=== PATIENT | male | born 1975 | race Caucasian/White ===

== ENCOUNTER 2019-01-29 19:54 | Inpatient (IN) | payer BC ==
[2019-01-29] MEDS ORDERED: SODIUM CHLORIDE 0.9% 1,000 ML IV STA (21:45)
[2019-01-29] MEDS ORDERED: KETOROLAC 30 MG/ML 1 ML VIAL IVP STA (21:46)
--- NOTE | 2019-01-29 21:52 | ED ---
URI HPI - General Chief Complaint: Upper Respiratory Infection Stated Complaint: Flu Time Seen by Provider: 01/29/19 21:28 Source: patient Mode of arrival: ambulatory Limitations: no limitations - History of Present Illness Initial Comments: 43-year-old male patient presents to the emergency department today for evaluation of shortness of breath, left-sided chest pain, nausea, and abdominal bloating. Patient states that approximately a week and a half ago he started developing flulike symptoms with cough, nasal congestion, sore throat, and fever. Patient states that most symptoms have resolved however he continues to have a productive cough with some shortness of breath. States that today he also developed some cold sweats was having left-sided rib and chest pain. She states he then had some dry heaves and he has been experiencing abdominal bloating and swelling throughout the day. States he had a near syncopal episode prior to coming in and has been very fatigued. Patient denies any significant past medical history. Denies any history of smoking. States that his heart rate has been more elevated than usual per his fitness watch. Patient denies any recent rash, constipation, back pain, numbness, tingling, dizziness, weakness, hematuria, dysuria, urinary urgency, urinary frequency, headache, visual changes, or any other complaints. - Related Data Home Medications Medication Instructions Recorded Confirmed Azithromycin [Zithromax Z-pack] See Taper PO DIRECTED 01/29/19 01/29/19 Allergies Allergy/AdvReac Type Severity Reaction Status Date / Time No Known Allergies Allergy Verified 01/29/19 22:35 Review of Systems ROS Statement: Those systems with pertinent positive or pertinent negative responses have been documented in the HPI. ROS Other: All systems not noted in ROS Statement are negative. Past Medical History Past Medical History: No Reported History History of Any Multi-Drug Resistant Organisms: None Reported Past Surgical History: Cholecystectomy, Orthopedic Surgery Past Psychological History: No Psychological Hx Reported Smoking Status: Never smoker Past Alcohol Use History: Rare Past Drug Use History: None Reported General Exam Limitations: no limitations General appearance: alert, in no apparent distress, other (Physical well- developed, well-nourished adult male patient in no acute distress. Vital signs upon presentation are temperature 99.7F, pulse 100, respirations 22, blood pressure 134/86, pulse ox 95% on room air.) Eye exam: Present: normal appearance, PERRL, EOMI. Absent: scleral icterus, conjunctival injection, periorbital swelling ENT exam: Present: normal exam, mucous membranes moist, TM's normal bilaterally. Absent: normal oropharynx (Pharyngeal erythema) Neck exam: Present: normal inspection. Absent: tenderness, meningismus, lymphadenopathy Respiratory exam: Present: normal lung sounds bilaterally, chest wall tenderness (Left anterior rib pain). Absent: respiratory distress, wheezes, rales, rhonchi, stridor Cardiovascular Exam: Present: normal rhythm, tachycardia, normal heart sounds. Absent: systolic murmur, diastolic murmur, rubs, gallop, clicks GI/Abdominal exam: Present: soft, distended, normal bowel sounds. Absent: tenderness, guarding, rebound, rigid Neurological exam: Present: alert, oriented X3, CN II-XII intact Psychiatric exam: Present: normal affect, normal mood Skin exam: Present: warm, dry, intact, normal color. Absent: rash Course Vital Signs 01/29/19 01/30/19 20:58 00:04 Temperature 99.7 F H 98.0 F Pulse Rate 100 85 Respiratory 22 18 Rate Blood Pressure 134/86 144/93 O2 Sat by Pulse 95 95 Oximetry Medical Decision Making - Medical Decision Making 43-year-old male patient presents to the emergency department today for evaluation of sided chest pain, shortness of breath, fatigue, and near-syncope. Physical examination did reveal clear equal lung sounds. Patient did recently recovered from a viral upper respiratory infection. Labs reviewed and did reveal elevated white blood cell count of 15.0, d-dimer 3.97, and BUN 23. Chest x-ray did reveal cardiomegaly and bilateral atelectasis. EKG showed normal sinus rhythm with a ventricular rate of 94. Patient was placed on telemetry to monitor for dysrhythmias, I did interpret strip as normal sinus rhythm with rates in the 70s. Given elevated d-dimer we did obtain CT angiography of the chest to rule out pulmonary embolism. CT results did reveal no evidence for pulmonary embolism however did reveal large pericardial effusion and bilateral pleural effusions. I did discuss findings and results with the patient. He'll be admitted to the hospital for further evaluation by cardiology. He will be monitored on telemetry. Patient is agreeable with this plan. - Lab Data Result diagrams: 01/29/19 22:02 02/28/19 22:02 Lab Results 01/29/19 01/29/19 01/29/19 Range/Units 22:02 22:02 22:02 WBC 15.0 H (3.8-10.6) k/uL RBC 5.33 (4.30-5.90) m/uL Hgb 16.0 (13.0-17.5) gm/dL Hct 48.8 (39.0-53.0) % MCV 91.6 (80.0-100.0) fL MCH 30.0 (25.0-35.0) pg MCHC 32.8 (31.0-37.0) g/dL RDW 12.6 (11.5-15.5) % Plt Count 448 (150-450) k/uL Neutrophils % 82 % Lymphocytes % 9 % Monocytes % 5 % Eosinophils % 2 % Basophils % 0 % Neutrophils # 12.3 H (1.3-7.7) k/uL Lymphocytes # 1.4 (1.0-4.8) k/uL Monocytes # 0.8 (0-1.0) k/uL Eosinophils # 0.4 (0-0.7) k/uL Basophils # 0.0 (0-0.2) k/uL PT 11.8 (9.0-12.0) sec INR 1.1 (<1.2) APTT 22.1 (22.0-30.0) sec D-Dimer 3.97 H (<0.60) mg/L FEU Sodium 139 (137-145) mmol/L Potassium 4.8 (3.5-5.1) mmol/L Chloride 101 (98-107) mmol/L Carbon Dioxide 28 (22-30) mmol/L Anion Gap 10 mmol/L BUN 23 H (9-20) mg/dL Creatinine 0.87 (0.66-1.25) mg/dL Est GFR (CKD-EPI)AfAm >90 (>60 ml/min/1.73 sqM) Est GFR (CKD-EPI)NonAf >90 (>60 ml/min/1.73 sqM) Glucose 129 H (74-99) mg/dL Calcium 9.1 (8.4-10.2) mg/dL Total Bilirubin 1.1 (0.2-1.3) mg/dL AST 27 (17-59) U/L ALT 57 (21-72) U/L Alkaline Phosphatase 85 (38-126) U/L Troponin I (0.000-0.034) ng/mL Total Protein 6.9 (6.3-8.2) g/dL Albumin 3.9 (3.5-5.0) g/dL Amylase <30 L (30-110) U/L Lipase 88 (23-300) U/L 01/29/19 Range/Units 22:02 WBC (3.8-10.6) k/uL RBC (4.30-5.90) m/uL Hgb (13.0-17.5) gm/dL Hct (39.0-53.0) % MCV (80.0-100.0) fL MCH (25.0-35.0) pg MCHC (31.0-37.0) g/dL RDW (11.5-15.5) % Plt Count (150-450) k/uL Neutrophils % % Lymphocytes % % Monocytes % % Eosinophils % % Basophils % % Neutrophils # (1.3-7.7) k/uL Lymphocytes # (1.0-4.8) k/uL Monocytes # (0-1.0) k/uL Eosinophils # (0-0.7) k/uL Basophils # (0-0.2) k/uL PT (9.0-12.0) sec INR (<1.2) APTT (22.0-30.0) sec D-Dimer (<0.60) mg/L FEU Sodium (137-145) mmol/L Potassium (3.5-5.1) mmol/L Chloride (98-107) mmol/L Carbon Dioxide (22-30) mmol/L Anion Gap mmol/L BUN (9-20) mg/dL Creatinine (0.66-1.25) mg/dL Est GFR (CKD-EPI)AfAm (>60 ml/min/1.73 sqM) Est GFR (CKD-EPI)NonAf (>60 ml/min/1.73 sqM) Glucose (74-99) mg/dL Calcium (8.4-10.2) mg/dL Total Bilirubin (0.2-1.3) mg/dL AST (17-59) U/L ALT (21-72) U/L Alkaline Phosphatase (38-126) U/L Troponin I <0.012 (0.000-0.034) ng/mL Total Protein (6.3-8.2) g/dL Albumin (3.5-5.0) g/dL Amylase (30-110) U/L Lipase (23-300) U/L - EKG Data EKG Comments: EKG interpreted by fl at 2211 shows normal sinus rhythm with a ventricular rate of 94, WA interval 124, QRS duration 82, QT 346, QTc 432. No evidence of ST elevation or depression. - Radiology Data Radiology results: report reviewed, image reviewed Two-view x-ray of the chest is obtained. Report was reviewed in its entirety. Impression by Dr. Sanders shows cardiomegaly. Mild interstitial thickening which could be related to edema. Mild opacities and left pectoral present atelectasis or early infiltrate. Blunting of the costophrenic sulcus suggesting small effusions. CT angiography of the chest is obtained. Report was reviewed in its entirety. Impression by Dr. Sanders shows large pericardial effusion. Bilateral pleural effusions with adjacent airspace disease favoring compressive atelectasis. At least mild ascites. Disposition Clinical Impression: Pericardial effusion, Bilateral pleural effusion, Ascites Disposition: ADMITTED IP TO THIS [facility] Condition: Serious Referrals: Shin Salter DO [Primary Care Provider] - 1-2 days Decision to Admit Reason: Admit from EC Decision Date: 01/30/19 Decision Time: 00:12
[2019-01-29 22:14] LABS: Basophils % (A) 0 %; Eosinophils # (A) 0.4 k/uL (0-0.7); Eosinophils % (A) 2 %; HCT 48.8 % (39.0-53.0); Lymphocytes # (A) 1.4 k/uL (1.0-4.8); Lymphocytes % (A) 9 %; MCHC 32.8 g/dL (31.0-37.0); MCV 91.6 fL (80.0-100.0); Mean Platelet Volume 7.5; Monocytes # (A) 0.8 k/uL (0-1.0); Monocytes % (A) 5 %; Neutrophils # (A) 12.3 k/uL (1.3-7.7); Neutrophils % (A) 82 %; Platelet Count 448 k/uL (150-450); RBC 5.33 m/uL (4.30-5.90); RDW 12.6 % (11.5-15.5)
[2019-01-29 22:23] LABS: ALT 57 U/L (21-72); AST 27 U/L (17-59); Albumin 3.9 g/dL (3.5-5.0); Alkaline Phosphatase 85 U/L (38-126); Anion Gap 10 mmol/L; Blood Urea Nitrogen 23 mg/dL (9-20); Calcium 9.1 mg/dL (8.4-10.2); Carbon Dioxide 28 mmol/L (22-30); Chloride 101 mmol/L (98-107); Glucose 129 mg/dL (74-99); Lipase 88 U/L (23-300); Potassium 4.8 mmol/L (3.5-5.1); Sodium 139 mmol/L (137-145); Total Bilirubin 1.1 mg/dL (0.2-1.3); Total Protein 6.9 g/dL (6.3-8.2)
[2019-01-29 22:31] LABS: Amylase <30 U/L (30-110)
[2019-01-29 22:35] LABS: INR 1.1 (<1.2); Partial Thromboplastin Time 22.1 sec (22.0-30.0); Prothrombin Time 11.8 sec (9.0-12.0)
[2019-01-29 22:45] LABS: D-Dimer 3.97 mg/L FEU (<0.60)
--- NOTE | 2019-01-29 22:55 | XR ---
EXAM: XR Chest, 1 View CLINICAL HISTORY: ITS.REASON XR Reason: difficulty breathing TECHNIQUE: Frontal view of the chest. COMPARISON: No relevant prior studies available. FINDINGS: Lungs: Mild interstitial thickening. Airspace opacities in the left base could represent atelectasis but nonspecific. Pleural space: Mild blunted appearance to the costophrenic sulci. No pneumothorax. Heart: Cardiomegaly. Mediastinum: Unremarkable. Bones/joints: Unremarkable. IMPRESSION: 1. Cardiomegaly. 2. Mild interstitial thickening which could be related to edema. Mild opacities in the left base likely represent atelectasis or early infiltrate. 3. Blunting of the costophrenic sulci suggesting small effusions.
--- NOTE | 2019-01-29 23:49 | CT ---
EXAM: CT Angiography Chest With Intravenous Contrast CLINICAL HISTORY: ITS.REASON CT Reason: Pain TECHNIQUE: Axial computed tomographic angiography images of the chest with intravenous contrast using pulmonary embolism protocol. CTDI is 15.5 mGy and DLP is 580.5 mGy-cm. This CT exam was performed using one or more of the following dose reduction techniques: automated exposure control, adjustment of the mA and/or kV according to patient size, and/or use of iterative reconstruction technique. MIP reconstructed images were created and reviewed. Coronal and sagittal reformatted images were created and reviewed. COMPARISON: Chest radiograph 01/29/19 FINDINGS: Pulmonary arteries: No visualized pulmonary arterial embolus. Aorta: No evidence for aortic dissection. Lungs: Dependent airspace disease favoring compressive atelectasis. Subsegmental atelectasis is also noted within the bilateral lungs. No mass. Pleural space: Bilateral small-moderate pleural effusions. No pneumothorax. Heart: Large pericardial effusion, approximate thickness 3.2 cm at the lateral aspect. Density is higher than simple fluid which could indicate complex or hemorrhagic component. Bones/joints: No acute fracture. No dislocation. Soft tissues: Nonacute.. Lymph nodes: Unremarkable. No enlarged lymph nodes. Intraperitoneal space: Perihepatic fluid/ascites. IMPRESSION: 1. Large pericardial effusion. 2. Bilateral pleural effusions with adjacent airspace disease favoring compressive atelectasis. 3. At least mild ascites. <MYCVCSECTION> Critical Value Communications 01/29/19 23:45 Call Doctor Regarding Pericardial Effusion of more than 1cm, called BIANCA Shaw on 01/29 23:44 (-05:00)
[2019-01-30] MEDS ORDERED: NALOXONE 0.4 MG/ML 1 ML VIAL IV PRN (00:13)
[2019-01-30] MEDS ORDERED: MORPHINE SULFATE 4 MG/ML SYRINGE IV PRN (00:13)
[2019-01-30] MEDS ORDERED: ONDANSETRON 4 MG/2 ML VIAL IVP PRN (00:13)
[2019-01-30 01:27] VITALS: BMI 41.2
[2019-01-30 01:39] LABS: Appearance,Urine Clear (Clear); Bilirubin,Urine Negative (Negative); Blood,Urine Negative (Negative); Color,Urine Yellow; Glucose,Urine (UA) Negative (Negative); Ketones,Urine Negative (Negative); Leukocyte Esterase,Urine Negative (Negative); Mucus,Urine Many /hpf; Nitrite,Urine Negative (Negative); Protein,Urine 2+ (Negative); RBC,Urine 1 /hpf (0-5); Specific Gravity,Urine 1.042 (1.001-1.035); WBC,Urine 1 /hpf (0-5)
[2019-01-30] MEDS ORDERED: KETOROLAC 30 MG/ML 1 ML VIAL IVP PRN (10:47)
[2019-01-30] MEDS ORDERED: IPRATROPIUM-ALBUTEROL 3 ML NEB INHALATION PRN (10:52)
[2019-01-30] MEDS ORDERED: methylPREDNISolone SOD SUCCI 40 MG/ML 1 ML VIAL IV SCH ×2 (11:00→21:00)
--- NOTE | 2019-01-30 11:29 | CONS ---
CONSULTATION Mr. Zavaleta is a 43-year-old gentleman who is seen for cardiac evaluations. Patient's medical records reviewed. This patient came with symptoms of shortness of breath and some left-sided chest pain and abdominal bloating. Patient gives a history that he had about a week and half ago, he started developing some flu-like symptoms with cough, nasal congestion, sore throat and fever. Most of those symptoms are resolved but he continued to have some productive cough and shortness of breath. Patient was seen by primary care doctor and he was prescribed Zithromax. As the patient continued to have some palpitations and the rapid heartbeat and shortness of breath, he came to the emergency room. He denies any orthopnea or PND. Patient denies any history of diabetes, hypertension, or any previous cardiac problems. Patient's home medications includes Zithromax with a tapering dose. PAST MEDICAL HISTORY: Includes history of cholecystectomy, orthopedic surgery. SOCIAL HISTORY: The patient never smoker. PHYSICAL EXAMINATION: At present reveals a 43-year-old obesely-built gentleman who does not appear to be in any acute distress. Patient had a low-grade temperature of 99 in the emergency room and blood pressure was 134/86 mmHg. Heart rate was 95 per minute. Patient's blood pressure now is 132/84 mmHg, heart rate is 100. HEENT examination is negative. Neck is supple. Jugular venous pressure is difficult to assess, both the carotid pulses are felt. There is no bruit. Chest is symmetrical. Heart, the PMI is not felt. First and second heart sounds are normal. No rub is heard. Lung examination revealed bilateral basal crackles with some scattered wheezes, heard on the left side. Abdomen is negative. Extremities, peripheral pulsations are 2+. [place] [id number]. D-dimer was 3.97. Patient's electrolytes are normal. Patient had a CT scan of the chest in the emergency room, which did not show any evidence of pulmonary embolism, but there was evidence of bilateral small to moderate pleural effusion and large pericardial effusion. There is a question of mild ascites. The pericardial fluid is the density of pericardial fluid were higher than simple fluid, which is suggestive of probably exudate or questionable hemorrhagic component. IMPRESSION: The patient's echocardiogram was done which again shows moderate to large pericardial effusion. There is evidence of right atrial systolic collapse. There is no significant right ventricular diastolic collapse. IVC is dilated and does not collapse, suggestive of elevated right atrial pressure. FINAL IMPRESSION: This patient has evidence of moderate to large pericardial effusion, bilateral pleural effusion. There is no definite evidence of tamponade at present. Patient's blood pressure is stable. His heart rate is 100; however, IVC is dilated and does not collapse. Patient most likely has a viral pleural pericarditis. This was discussed with the patient. Discussed with . In view of the large pericardial effusion, we will start the patient on Solu-Medrol and see whether we can resolve the pericardial effusion. Patient will be also started on Motrin and colchicine. We have obtained a Sed Rate and C-reactive protein and we will also obtain viral studies. MMODL / IJN: [id number] /
--- NOTE | 2019-01-30 11:47 | P.HPIM ---
History of Present Illness 43-year-old pleasant gentleman came in the emergency department with compensative shortness of breath left-sided pleuritic chest pain upper respiratory tract symptoms which started about a week ago followed by shortness of breath palpitations. Patient doesn't have any fever as of now. Patient was treated with Z-Cy. Patient had a CAT scan of the chest which showed bilateral pleural effusions along with the moderate large pedicle effusion patient underwent echocardiogram which confirmed a pericardial effusion. Discussed with cardiology at bedside. They're recommending medical therapy with the aggressive steroid therapy, nonsteroidal anti-inflammatory as well as colchicine and close monitoring for the next day or so. Review of Systems REVIEW OF SYSTEMS: CONSTITUTIONAL: No fever, no malaise, no fatigue. HEENT: No recent visual problems or hearing problems. Denied any sore throat. CARDIOVASCULAR: No orthopnea, PND, no syncope. PULMONARY: no cough, no hemoptysis. GASTROINTESTINAL: No diarrhea, no nausea, no vomiting, no abdominal pain. NEUROLOGICAL: No headaches, no weakness, no numbness. HEMATOLOGICAL: Denies any bleeding or petechiae. GENITOURINARY: Denies any burning micturition, frequency, or urgency. MUSCULOSKELETAL/RHEUMATOLOGICAL: Denies any joint pain, swelling, or any muscle pain. ENDOCRINE: Denies any polyuria or polydipsia. The rest of the 14-point review of systems is negative. Past Medical History Past Medical History: No Reported History History of Any Multi-Drug Resistant Organisms: None Reported Past Surgical History: Cholecystectomy, Orthopedic Surgery Additional Past Surgical History / Comment(s): Left shoulder surgery 08/2008 Past Anesthesia/Blood Transfusion Reactions: No Reported Reaction Past Psychological History: No Psychological Hx Reported Smoking Status: Never smoker Past Alcohol Use History: Rare Past Drug Use History: None Reported Medications and Allergies Home Medications Medication Instructions Recorded Confirmed Type Azithromycin [Zithromax Z-pack] See Taper PO DIRECTED 01/29/19 01/29/19 History Allergies Allergy/AdvReac Type Severity Reaction Status Date / Time No Known Allergies Allergy Verified 01/29/19 22:35 Physical Exam Vitals: Vital Signs Temp Pulse Pulse Resp BP BP Pulse Ox 01/30/19 08:44 98 01/30/19 08:00 99 F 102 H 18 132/84 96 01/30/19 03:57 99.5 F 93 16 122/86 99 01/30/19 01:33 98.2 F 62 16 120/93 98 01/30/19 00:04 98.0 F 85 18 144/93 95 01/29/19 20:58 99.7 F H 100 22 134/86 95 Intake and Output 01/29/19 01/30/19 01/30/19 22:59 06:59 14:59 Intake Total 240 Balance 240 Intake: Oral 240 Other: # Voids 1 Weight 127.006 kg 130.4 kg PHYSICAL EXAMINATION: GENERAL: The patient is alert and oriented x3, not in any acute distress. Obese HEENT: Pupils are round and equally reacting to light. EOMI. No scleral icterus. No conjunctival pallor. Normocephalic, atraumatic. No pharyngeal erythema. No thyromegaly. CARDIOVASCULAR: S1 and S2 present. No murmurs, rubs, or gallops. PULMONARY: Chest is clear to auscultation, no wheezing or crackles. ABDOMEN: Soft, nontender, nondistended, normoactive bowel sounds. No palpable organomegaly. MUSCULOSKELETAL: No joint swelling or deformity. EXTREMITIES: No cyanosis, clubbing, or pedal edema. NEUROLOGICAL: Gross neurological examination did not reveal any focal deficits. SKIN: No rashes. Results CBC & Chem 7: 01/29/19 22:02 01/29/19 22:02 Labs: Abnormal Lab Results - Last 24 Hours (Table) 01/29/19 01/29/19 01/29/19 Range/Units 22:02 22:02 22:02 WBC 15.0 H (3.8-10.6) k/uL Neutrophils # 12.3 H (1.3-7.7) k/uL D-Dimer 3.97 H (<0.60) mg/L FEU BUN 23 H (9-20) mg/dL Glucose 129 H (74-99) mg/dL Amylase <30 L (30-110) U/L Ur Specific [place] (1.001-1.035) Urine Protein (Negative) Urine Mucus (None) /hpf 01/30/19 Range/Units 01:25 WBC (3.8-10.6) k/uL Neutrophils # (1.3-7.7) k/uL D-Dimer (<0.60) mg/L FEU BUN (9-20) mg/dL Glucose (74-99) mg/dL Amylase (30-110) U/L Ur Specific [place] 1.042 H (1.001-1.035) Urine Protein 2+ H (Negative) Urine Mucus Many H (None) /hpf Thrombosis Risk Factor Assmnt - Choose All That Apply Any of the Below Risk Factors Present?: Yes Each Factor Represents 1 point: Age 41-60 years, Obesity (BMI >25) Other Risk Factors: No Other congenital or acquired thrombophilia - If yes, enter type in comment: No Thrombosis Risk Factor Assessment Total Risk Factor Score: 2 Thrombosis Risk Factor Assessment Level: Low Risk Assessment and Plan Plan: -Shortness of breath or pleuritic chest pain: Secondary to pleuropericarditis from her recent viral infection patient was started on steroids and inflammatory medications and colchicine patient will be closely monitored. Patient does not have any elevated JVD does not appear to have cardiac tamponade at this time. Patient was started on GI prophylaxis as well -Recent upper respiratory infection patient will not require any antibiotics patient the appears to have viral infection -Leukocytosis reactive in nature -Tachycardia secondary to pleuropericarditis no evidence of pneumonia Patient will need pharmacologic GI prophylaxis early ablation will not require any pharmacologic DVT prophylaxis
[2019-01-30] MEDS: PANTOPRAZOLE 40 MG TABLET PO SCH (12:46)
[2019-01-30] MEDS: IBUPROFEN 600 MG TAB PO SCH ×3 (12:46→21:09)
[2019-01-30] MEDS: COLCHICINE 0.6 MG EACH PO SCH ×2 (12:47→21:09)
[2019-01-30] MEDS: IPRATROPIUM-ALBUTEROL 3 ML NEB INHALATION SCH ×3 (13:33→19:37)
--- NOTE | 2019-01-30 18:52 | ECHOF ---
Referral Reason:pericardial effusioin MEASUREMENTS -------- HEIGHT: 180.3 cm WEIGHT: 130.6 kg BP: IVSd: 1.2 cm (0.6 - 1.1) LVIDd: 3.5 cm (3.9 - 5.3) LVPWd: 1.3 cm (0.6 - 1.1) IVSs: 1.9 cm LVIDs: 1.8 cm LVPWs: 1.9 cm Ao Diam: 3.3 cm (2.0 - 3.7) AV Cusp: 1.8 cm (1.5 - 2.6) LA Diam: 2.5 cm (2.7 - 3.8) MV EXCURSION: 17.570 mm (> 18.000) MV EF SLOPE: 66 mm/s (70 - 150) EPSS: 0.4 cm MV E Derrick: 0.41 m/s MV DecT: 153 ms MV A Derrick: 0.34 m/s MV E/A Ratio: 1.20 RAP: 20.00 mmHg RVSP: 31.89 mmHg FINDINGS -------- Resting tachycardia (HR>100bpm). This was a technically good study. The left ventricular size is normal. There is mild concentric left ventricular hypertrophy. Overa ll left ventricular systolic function is normal with, an EF between 60 - 65 %. The right ventricle is normal in size and function. The left atrium is normal in size. The right atrium is normal in size. The aortic valve is trileaflet, and appears structurally normal. No aortic stenosis or regurgitation. There is trace mitral regurgitation. Trace tricuspid regurgitation present. The right ventricular systolic pressure, as measured by Dopp ler, is 31.89mmHg. Pulmonic valve appears structurally normal. The aortic root size is normal. The inferior vena cava is dilated with no significant inspiratory collapse which is consistent estima jones right atrial pressure of >20 mmHg. Large global pericardial effusion Cant exclude tamponade. CONCLUSIONS -------- 1. Resting tachycardia (HR>100bpm). 2. This was a technically good study. 3. The left ventricular size is normal. 4. There is mild concentric left ventricular hypertrophy. 5. Overall left ventricular systolic function is normal with, an EF between 60 - 65 %. 6. The right ventricle is normal in size and function. 7. The left atrium is normal in size. 8. The right atrium is normal in size. 9. The aortic valve is trileaflet, and appears structurally normal. No aortic stenosis or regurgitati on. 10. There is trace mitral regurgitation. 11. Trace tricuspid regurgitation present. 12. The right ventricular systolic pressure, as measured by Doppler, is 31.89mmHg. 13. Pulmonic valve appears structurally normal. 14. The aortic root size is normal. 15. The inferior vena cava is dilated with no significant inspiratory collapse which is consistent es timated right atrial pressure of >20 mmHg. 16. Large global pericardial effusion 17. Cant exclude tamponade. BURNER TECHNICIAN: Chen Mart RDCS
[2019-01-30 21:07] LABS: Glucose,Whole Blood 130 mg/dL (75-99)
[2019-01-31] MEDS ORDERED: DILTIAZEM DRIP BOLUS FROM BAG 1 MG SOLN IV ONE (02:15)
[2019-01-31] MEDS ORDERED: DILTIAZEM 125 MG in SODIUM CHLORIDE 0.9% 100 ML IV SCH (02:30)
[2019-01-31 06:18] LABS: Glucose,Whole Blood 160 mg/dL (75-99)
[2019-01-31] MEDS: PANTOPRAZOLE 40 MG TABLET PO SCH (06:42)
[2019-01-31] MEDS: INSULIN ASPART (NovoLOG) 100 UNIT/ML VIAL SQ SCH ×4 (06:43→20:22)
[2019-01-31] MEDS: methylPREDNISolone SOD SUCCI 40 MG/ML 1 ML VIAL IV SCH ×3 (06:43→22:29)
[2019-01-31] MEDS: IPRATROPIUM-ALBUTEROL 3 ML NEB INHALATION SCH ×4 (07:16→19:54)
[2019-01-31 07:20] LABS: Basophils % (A) 0 %; Eosinophils # (A) 0.1 k/uL (0-0.7); Eosinophils % (A) 1 %; HCT 45.8 % (39.0-53.0); HGB 14.9 gm/dL (13.0-17.5); Lymphocytes # (A) 0.7 k/uL (1.0-4.8); Lymphocytes % (A) 6 %; MCH 30.1 pg (25.0-35.0); MCHC 32.5 g/dL (31.0-37.0); MCV 92.5 fL (80.0-100.0); Mean Platelet Volume 6.6; Monocytes # (A) 0.3 k/uL (0-1.0); Monocytes % (A) 3 %; Neutrophils # (A) 9.3 k/uL (1.3-7.7); Neutrophils % (A) 89 %; Platelet Count 490 k/uL (150-450); RBC 4.95 m/uL (4.30-5.90); RDW 12.7 % (11.5-15.5); WBC 10.4 k/uL (3.8-10.6)
[2019-01-31 07:27] LABS: INR 1.2 (<1.2); Prothrombin Time 12.8 sec (9.0-12.0)
[2019-01-31 07:31] LABS: ALT 52 U/L (21-72); AST 29 U/L (17-59); Albumin 3.8 g/dL (3.5-5.0); Alkaline Phosphatase 74 U/L (38-126); Anion Gap 10 mmol/L; Blood Urea Nitrogen 19 mg/dL (9-20); Calcium 9.1 mg/dL (8.4-10.2); Carbon Dioxide 26 mmol/L (22-30); Chloride 103 mmol/L (98-107); Glucose 168 mg/dL (74-99); Potassium 5.4 mmol/L (3.5-5.1); Sodium 139 mmol/L (137-145); Total Bilirubin 1.4 mg/dL (0.2-1.3); Total Protein 6.9 g/dL (6.3-8.2)
[2019-01-31] MEDS: IBUPROFEN 600 MG TAB PO SCH ×3 (08:27→22:29)
[2019-01-31] MEDS: COLCHICINE 0.6 MG EACH PO SCH ×2 (08:27→20:22)
--- NOTE | 2019-01-31 09:52 | P.GSCN ---
Addendum entered and electronically signed by Chen Batista NP-C 01/31/19 12:34 : The patient was seen and examined by Dr. Thibodeaux. We offered the patient pericardial window, we discussed the surgery in detail with the patient and his family, all questions were answered and they consented to surgery. We will plan for pericardial window Saturday. This was discussed with cardiology. Original Note: <Chen Batista - Last Filed: 01/31/19 09:25> History of Present Illness Consult date: 01/31/19 Reason for Consult: Pericardial effusion, surgical recommendations Requesting physician: Mykel Beckman History of present illness: This is a 43-year-old gentleman who follows on an outpatient basis with Dr. Shin Salter. He has essentially no previous medical history except cholecystectomy, however his family has a history of premature coronary artery disease, hyperlipidemia, and diabetes. While at work approximately a week and a half ago he suddenly felt short of breath and very lethargic. Over the next couple of days he also noticed an elevated heart rate and abdominal bloating which was present in the evening and gone by the morning. His symptoms seemed to wax and wane. Earlier this week he did report to his primary care physician' s office and was placed on Zithromax. His symptoms did not resolve, he had added symptoms of sweats, anorexia, and substernal chest pain with radiation to his left arm. He did not take his temperature so he is unsure if he had any fever, however he stated that when he felt hot he would take 200 mg of ibuprofen. He also reports a 14 pound weight gain in the last week and a half. He presented to [facility] emergency room for evaluation. Chest x- ray completed demonstrated cardiomegaly with blunting of the costophrenic angles suggesting small bilateral effusions. EKG reported normal sinus rhythm without ischemic changes. Troponin was drawn and was negative. A chest CTA was completed demonstrating no pulmonary embolism, bilateral small to moderate pleural effusions, and large pericardial effusion as well as mild ascites. He was admitted for evaluation and treatment with cardiology consultation. A transthoracic echocardiogram was completed demonstrating normal LV function with an EF 60-65%, no significant valvular pathology, elevated right atrial pressure, and large global pericardial effusion without tamponade physiology. Sed rate was elevated at 25, CRP is elevated at 52.5. He was placed on ibuprofen, colchicine, and IV Solu-Medrol. Consultation was placed to cardiothoracic surgery for treatment recommendations. Of note, he did have a paroxysmal episode of A. fib with RVR overnight and was started on IV Cardizem, he is currently in normal sinus rhythm. Review of Systems Review of systems was completed and was negative except as noted. - Constitutional Reports anorexia, Reports chills, Reports fatigue, Reports lethargy, Reports poor appetite, Reports sweats, Reports weight gain - Cardiovascular Reports chest pain, Reports palpitations - Respiratory Reports cough with sputum, Reports dyspnea Past Medical History Past Medical History: No Reported History History of Any Multi-Drug Resistant Organisms: None Reported Past Surgical History: Cholecystectomy, Orthopedic Surgery Additional Past Surgical History / Comment(s): Left shoulder surgery 08/2008 Past Anesthesia/Blood Transfusion Reactions: No Reported Reaction Past Psychological History: No Psychological Hx Reported Smoking Status: Never smoker Past Alcohol Use History: Rare Past Drug Use History: None Reported - Past Family History Mother Family Medical History: Diabetes Mellitus Additional Family Medical History / Comment(s): Maternal grandmother had diagnosed coronary artery disease less than 60 years old Father Family Medical History: Hyperlipidemia Medications and Allergies Home Medications Medication Instructions Recorded Confirmed Type Azithromycin [Zithromax Z-pack] See Taper PO DIRECTED 01/29/19 01/29/19 History Allergies Allergy/AdvReac Type Severity Reaction Status Date / Time No Known Allergies Allergy Verified 01/29/19 22:35 Surgical - Exam Vital Signs Temp Pulse Resp BP Pulse Ox 99.7 F H 100 22 134/86 95 01/29/19 20:58 01/29/19 20:58 01/29/19 20:58 01/29/19 20:58 01/29/19 20:58 - General well developed, well nourished, no distress, no pain - Eyes PERRL, normal ocular movement - ENT no hearing loss - Neck no masses, no bruits, trachea midline - Respiratory Lungs sounds diminished bilaterally. Respirations even, nonlabored. Currently on room air with oxygen saturation 93%. - Cardiovascular S1, S2 present. No distant heart tones noted. Regular rate and rhythm, sinus rhythm on telemetry. Palpable peripheral pulses bilaterally. No edema present. No calf pain or tenderness noted. - Abdomen Abdomen: soft, non tender, bowel sounds - Genitourinary Deferred - Rectum Deferred - Integumentary no rash, no growths, no abnormal pigmentation - Neurologic normal coordination, normal sensation - Musculoskeletal normal gait, normal posture - Psychiatric oriented to time, oriented to person, oriented to place, speech is normal, memory intact Results - Labs 01/31/19 07:10 01/31/19 07:10 Abnormal Lab Results - Last 24 Hours (Table) 01/30/19 01/30/19 01/30/19 Range/Units 11:30 11:30 21:01 Plt Count (150-450) k/uL Neutrophils # (1.3-7.7) k/uL Lymphocytes # (1.0-4.8) k/uL ESR 25 H (0-15) mm/hr PT (9.0-12.0) sec INR (<1.2) Potassium (3.5-5.1) mmol/L Glucose (74-99) mg/dL POC Glucose (mg/dL) 130 H (75-99) mg/dL Total Bilirubin (0.2-1.3) mg/dL C-Reactive Protein 52.5 H (<10.0) mg/L 01/31/19 01/31/19 01/31/19 Range/Units 06:15 07:10 07:10 Plt Count 490 H (150-450) k/uL Neutrophils # 9.3 H (1.3-7.7) k/uL Lymphocytes # 0.7 L (1.0-4.8) k/uL ESR (0-15) mm/hr PT 12.8 H (9.0-12.0) sec INR 1.2 H (<1.2) Potassium (3.5-5.1) mmol/L Glucose (74-99) mg/dL POC Glucose (mg/dL) 160 H (75-99) mg/dL Total Bilirubin (0.2-1.3) mg/dL C-Reactive Protein (<10.0) mg/L 01/31/19 Range/Units 07:10 Plt Count (150-450) k/uL Neutrophils # (1.3-7.7) k/uL Lymphocytes # (1.0-4.8) k/uL ESR (0-15) mm/hr PT (9.0-12.0) sec INR (<1.2) Potassium 5.4 H (3.5-5.1) mmol/L Glucose 168 H (74-99) mg/dL POC Glucose (mg/dL) (75-99) mg/dL Total Bilirubin 1.4 H (0.2-1.3) mg/dL C-Reactive Protein (<10.0) mg/L Diabetes panel 01/31/19 Range/Units 07:10 Sodium 139 (137-145) mmol/L Potassium 5.4 H (3.5-5.1) mmol/L Chloride 103 (98-107) mmol/L Carbon Dioxide 26 (22-30) mmol/L BUN 19 (9-20) mg/dL Creatinine 0.69 (0.66-1.25) mg/dL Glucose 168 H (74-99) mg/dL Calcium 9.1 (8.4-10.2) mg/dL AST 29 (17-59) U/L ALT 52 (21-72) U/L Alkaline Phosphatase 74 (38-126) U/L Total Protein 6.9 (6.3-8.2) g/dL Albumin 3.8 (3.5-5.0) g/dL Calcium panel 01/31/19 Range/Units 07:10 Calcium 9.1 (8.4-10.2) mg/dL Albumin 3.8 (3.5-5.0) g/dL Pituitary panel 01/31/19 Range/Units 07:10 Sodium 139 (137-145) mmol/L Potassium 5.4 H (3.5-5.1) mmol/L Chloride 103 (98-107) mmol/L Carbon Dioxide 26 (22-30) mmol/L BUN 19 (9-20) mg/dL Creatinine 0.69 (0.66-1.25) mg/dL Glucose 168 H (74-99) mg/dL Calcium 9.1 (8.4-10.2) mg/dL Adrenal panel 01/31/19 Range/Units 07:10 Sodium 139 (137-145) mmol/L Potassium 5.4 H (3.5-5.1) mmol/L Chloride 103 (98-107) mmol/L Carbon Dioxide 26 (22-30) mmol/L BUN 19 (9-20) mg/dL Creatinine 0.69 (0.66-1.25) mg/dL Glucose 168 H (74-99) mg/dL Calcium 9.1 (8.4-10.2) mg/dL Total Bilirubin 1.4 H (0.2-1.3) mg/dL AST 29 (17-59) U/L ALT 52 (21-72) U/L Alkaline Phosphatase 74 (38-126) U/L Total Protein 6.9 (6.3-8.2) g/dL Albumin 3.8 (3.5-5.0) g/dL - Imaging Chest x-ray: report reviewed, image reviewed CT scan - chest: report reviewed, image reviewed EKG: image reviewed Additional studies: Transthoracic echocardiogram reviewed Assessment and Plan Assessment: 1. Moderate to large global pericardial effusion without tamponade physiology 2. New onset paroxysmal atrial fibrillation with rapid ventricular response, currently in normal sinus rhythm 3. Family history of premature coronary artery disease Plan: The patient was seen and examined at the bedside. Chart/diagnostics reviewed. The patient's currently in no distress and denies any pain. Currently he is not tachycardic or hypotensive. Would recommend continuing colchicine, Motrin, Solu-Medrol IV. Discussed surgical intervention for treatment of pericardial effusion with the patient, all questions were answered. Will discuss the case in detail with Dr. Thibodeaux and make surgical recommendations. A. fib management per Dr. Beckman. Continue to an abscess, encourage coughing and deep breathing. Pain control and continued medical management per Dr. Mckeon. Thank you Dr. Beckman for this consult. We look forward to working with you in the care of your patient. Time with Patient: Greater than 30 <Maurice Thibodeaux - Last Filed: 02/02/19 11:29> Surgical - Exam Vital Signs Temp Pulse Resp BP Pulse Ox 99.7 F H 100 22 134/86 95 01/29/19 20:58 01/29/19 20:58 01/29/19 20:58 01/29/19 20:58 01/29/19 20:58 Results - Labs 02/02/19 08:13 02/02/19 08:13 Abnormal Lab Results - Last 24 Hours (Table) 02/01/19 02/01/19 02/01/19 Range/Units 11:18 16:18 20:36 WBC (3.8-10.6) k/uL Plt Count (150-450) k/uL Potassium (3.5-5.1) mmol/L BUN (9-20) mg/dL Glucose (74-99) mg/dL POC Glucose (mg/dL) 136 H 160 H 131 H (75-99) mg/dL 02/02/19 02/02/19 02/02/19 Range/Units 05:51 08:13 08:13 WBC 18.9 H (3.8-10.6) k/uL Plt Count 543 H (150-450) k/uL Potassium 5.8 H (3.5-5.1) mmol/L BUN 32 H (9-20) mg/dL Glucose 113 H (74-99) mg/dL POC Glucose (mg/dL) 115 H (75-99) mg/dL Diabetes panel 02/01/19 02/02/19 Range/Units 06:03 08:13 Sodium 139 (137-145) mmol/L Potassium 5.8 H (3.5-5.1) mmol/L Chloride 104 (98-107) mmol/L Carbon Dioxide 28 (22-30) mmol/L BUN 32 H (9-20) mg/dL Creatinine 0.82 (0.66-1.25) mg/dL Glucose 113 H (74-99) mg/dL Hemoglobin A1c 5.5 (4.0-6.0) % Calcium 9.1 (8.4-10.2) mg/dL Calcium panel 02/02/19 Range/Units 08:13 Calcium 9.1 (8.4-10.2) mg/dL Pituitary panel 02/02/19 Range/Units 08:13 Sodium 139 (137-145) mmol/L Potassium 5.8 H (3.5-5.1) mmol/L Chloride 104 (98-107) mmol/L Carbon Dioxide 28 (22-30) mmol/L BUN 32 H (9-20) mg/dL Creatinine 0.82 (0.66-1.25) mg/dL Glucose 113 H (74-99) mg/dL Calcium 9.1 (8.4-10.2) mg/dL Adrenal panel 02/02/19 Range/Units 08:13 Sodium 139 (137-145) mmol/L Potassium 5.8 H (3.5-5.1) mmol/L Chloride 104 (98-107) mmol/L Carbon Dioxide 28 (22-30) mmol/L BUN 32 H (9-20) mg/dL Creatinine 0.82 (0.66-1.25) mg/dL Glucose 113 H (74-99) mg/dL Calcium 9.1 (8.4-10.2) mg/dL Assessment and Plan Plan: The patient was seen and examined. I agree with the above assessment and plan. The patient is a 43-year-old male who presented to the hospital after feeling fatigue and general malaise. He developed worsening shortness of breath and workup revealed a significant pericardial effusion with no clinical evidence of tamponade. Conservative therapy has been started by cardiology. If the fluid persists then he may require pericardial window on this admission. The risks, benefits, and alternatives to this procedure were discussed with the patient and his . All their questions were answered. We will continue to follow along with you.
[2019-01-31 11:48] LABS: Glucose,Whole Blood 225 mg/dL (75-99)
--- NOTE | 2019-01-31 12:40 | P.PN ---
Subjective Progress Note Date: 01/31/19 This is a pleasant 43-year-old gentleman who is seen in consultation by Dr. VC Beckman yesterday he presented to the hospital with symptoms of left- sided chest discomfort, abdominal bloating, and symptoms of mild shortness of breath for a one week duration. He did have symptoms prior to that which resemble flulike symptoms, productive cough, nasal congestion sore throat and fever which have been going through his house as well. He had been prescribed Zithromax as an outpatient. He was found on admission here to have a significant pericardial effusion, moderate to large, evidence of right atrial systolic collapse with no significant right ventricular diastolic collapse noted. IVC was dilated and did not collapse, suggestive of elevated right atrial pressure. There is no definite evidence of tamponade. Blood pressure was stable. Through the night last night patient went into atrial fibrillation with a rapid ventricular response and was started on IV Cardizem. This morning has converted back to normal sinus rhythm. Patient was initiated on Solu- Medrol as well as Motrin and colchicine. Sed rate was elevated at 25, C- reactive protein 52.5 viral titers have also been ordered. Yet pending. At the time of my examination this morning the patient feels well, he is sitting up in his chair at bedside, and time asymptomatic. We did repeat a limited echocardiogram with Doppler study this morning which revealed approximately the same amount of fluid. The patient, and may proceed with draining of the pericardial fluid. Objective - Vital Signs Vital signs: Vital Signs Temp 99 F 01/31/19 08:00 Pulse 100 01/31/19 11:27 Resp 18 01/31/19 08:00 BP 143/82 01/31/19 08:00 Pulse Ox 93 L 01/31/19 08:00 Intake & Output 01/30/19 01/31/19 01/31/19 18:59 06:59 18:59 Intake Total 240 600 240 Output Total 1600 775 Balance -1360 -175 240 Weight 129.5 kg Intake: Oral 240 600 240 Output: Urine 1600 775 - Exam PHYSICAL EXAMINATION: GENERAL: 43-year-old gentleman in no acute distress at the time of my examination HEENT: Head is atraumatic, normocephalic. Pupils equal, round. Sclera anicteric. Conjunctiva are clear. Mucous membranes of the mouth are moist. Neck is supple. There is no elevated jugular venous pressure. No carotid bruit is heard. HEART EXAMINATION: Heart S1, S2 normal. No murmur or gallop heard. CHEST EXAMINATION: Lungs are clear to auscultation and precussion. No chest wall tenderness is noted on palpation or with deep breathing. ABDOMEN: Soft, nontender. Bowel sounds are heard. No organomegaly noted. EXTREMITIES: 2+ peripheral pulses with no evidence of peripheral edema and no calf tenderness noted. NEUROLOGIC patient is awake, alert and oriented 3. . - Labs CBC & Chem 7: 01/31/19 07:10 01/31/19 07:10 Labs: Abnormal Lab Results - Last 24 Hours (Table) 01/30/19 01/30/19 01/31/19 Range/Units 11:30 21:01 06:15 Plt Count (150-450) k/uL Neutrophils # (1.3-7.7) k/uL Lymphocytes # (1.0-4.8) k/uL ESR 25 H (0-15) mm/hr PT (9.0-12.0) sec INR (<1.2) Potassium (3.5-5.1) mmol/L Glucose (74-99) mg/dL POC Glucose (mg/dL) 130 H 160 H (75-99) mg/dL Total Bilirubin (0.2-1.3) mg/dL 01/31/19 01/31/19 01/31/19 Range/Units 07:10 07:10 07:10 Plt Count 490 H (150-450) k/uL Neutrophils # 9.3 H (1.3-7.7) k/uL Lymphocytes # 0.7 L (1.0-4.8) k/uL ESR (0-15) mm/hr PT 12.8 H (9.0-12.0) sec INR 1.2 H (<1.2) Potassium 5.4 H (3.5-5.1) mmol/L Glucose 168 H (74-99) mg/dL POC Glucose (mg/dL) (75-99) mg/dL Total Bilirubin 1.4 H (0.2-1.3) mg/dL 01/31/19 Range/Units 11:23 Plt Count (150-450) k/uL Neutrophils # (1.3-7.7) k/uL Lymphocytes # (1.0-4.8) k/uL ESR (0-15) mm/hr PT (9.0-12.0) sec INR (<1.2) Potassium (3.5-5.1) mmol/L Glucose (74-99) mg/dL POC Glucose (mg/dL) 225 H (75-99) mg/dL Total Bilirubin (0.2-1.3) mg/dL Assessment and Plan Plan: Assessment and plan #1 moderate to large pericardial effusion, likely secondary to recent viral infection. #2 paroxysmal atrial fibrillation Plan Repeat echocardiogram with Doppler study this morning revealed a similar pericardial effusion, we will continue with steroids, Motrin, and colchicine. Patient has also been seen and evaluated by cardiothoracic surgery for possible drainage of that fluid. We will await viral titers. ESR and CRP are elevated. We will start the patient on a small dose of beta enmanuel. DNP note has been reviewed, I agree with a documented findings and plan of care. Patient was seen and examined.
[2019-01-31] MEDS: METOPROLOL TARTRATE 25 MG TAB PO SCH ×2 (14:06→20:22)
--- NOTE | 2019-01-31 16:17 | P.PN ---
Subjective 43-year-old gentleman admitted for a viral pericarditis leading to pericardial effusion without any tamponade although she does appear to have some peripheral edema and ascites. Patient was a valid by cardiothoracic surgery for pericardiocentesis continue with the medical management with the anti- inflammatories steroids and colchicine patient chest pain is better no significant change in pericardial effusion Constitutional: Denied any fatigue denied any fever. Cardio vascular: denied any chest pain, palpitations Gastrointestinal denied any nausea vomiting Pulmonary: Denied any shortness of breath cough Neurologic denied any new focal deficits All inpatient medications were reviewed and appropriate changes in these medications as dictated in the interval history and assessment and plan. Objective - Vital Signs Vital signs: Vital Signs Temp 98.7 F 01/31/19 12:20 Pulse 100 01/31/19 12:20 Resp 18 01/31/19 12:20 BP 138/77 01/31/19 12:20 Pulse Ox 91 L 01/31/19 12:20 Intake & Output 01/30/19 01/31/19 01/31/19 18:59 06:59 18:59 Intake Total 240 600 600 Output Total 1600 775 500 Balance -1360 -175 100 Weight 129.5 kg Intake: Oral 240 600 600 Output: Urine 1600 775 500 Other: # Bowel Movements 1 - Exam PHYSICAL EXAMINATION: GENERAL: The patient is alert and oriented x3, not in any acute distress. Well developed, well nourished. HEENT: Pupils are round and equally reacting to light. EOMI. No scleral icterus. No conjunctival pallor. Normocephalic, atraumatic. No pharyngeal erythema. No thyromegaly. CARDIOVASCULAR: S1 and S2 present. No murmurs, rubs, or gallops. PULMONARY: Chest is clear to auscultation, no wheezing or crackles. ABDOMEN: Soft, nontender, nondistended, normoactive bowel sounds. No palpable organomegaly. MUSCULOSKELETAL: No joint swelling or deformity. EXTREMITIES: No cyanosis, clubbing, patient does have some anasarca and mild pitting pedal edema NEUROLOGICAL: Gross neurological examination did not reveal any focal deficits. SKIN: No rashes. - Labs CBC & Chem 7: 01/31/19 07:10 01/31/19 07:10 Labs: Abnormal Lab Results - Last 24 Hours (Table) 01/30/19 01/31/19 01/31/19 Range/Units 21:01 06:15 07:10 Plt Count 490 H (150-450) k/uL Neutrophils # 9.3 H (1.3-7.7) k/uL Lymphocytes # 0.7 L (1.0-4.8) k/uL PT (9.0-12.0) sec INR (<1.2) Potassium (3.5-5.1) mmol/L Glucose (74-99) mg/dL POC Glucose (mg/dL) 130 H 160 H (75-99) mg/dL Total Bilirubin (0.2-1.3) mg/dL 01/31/19 01/31/19 01/31/19 Range/Units 07:10 07:10 11:23 Plt Count (150-450) k/uL Neutrophils # (1.3-7.7) k/uL Lymphocytes # (1.0-4.8) k/uL PT 12.8 H (9.0-12.0) sec INR 1.2 H (<1.2) Potassium 5.4 H (3.5-5.1) mmol/L Glucose 168 H (74-99) mg/dL POC Glucose (mg/dL) 225 H (75-99) mg/dL Total Bilirubin 1.4 H (0.2-1.3) mg/dL Assessment and Plan Plan: -Shortness of breath or pleuritic chest pain: Secondary to pleuropericarditis from her recent viral infection patient was started on steroids and inflammatory medications and colchicine patient will be closely monitored. Patient does not have any elevated JVD does not appear to have cardiac tamponade at this time. Patient was evaluated in thoracic surgery for possible pericardiocentesis Patient was started on GI prophylaxis as well -Recent upper respiratory infection patient will not require any antibiotics patient the appears to have viral infection -Leukocytosis reactive in nature -Tachycardia secondary to pleuropericarditis no evidence of pneumonia Patient will need pharmacologic GI prophylaxis early ablation will not require any pharmacologic DVT prophylaxis
[2019-01-31 16:29] LABS: Glucose,Whole Blood 140 mg/dL (75-99)
[2019-01-31 20:18] LABS: Glucose,Whole Blood 174 mg/dL (75-99)
[2019-02-01 06:11] LABS: Glucose,Whole Blood 128 mg/dL (75-99)
[2019-02-01] MEDS: PANTOPRAZOLE 40 MG TABLET PO SCH (06:13)
[2019-02-01] MEDS: INSULIN ASPART (NovoLOG) 100 UNIT/ML VIAL SQ SCH ×4 (06:13→20:39)
[2019-02-01] MEDS: methylPREDNISolone SOD SUCCI 40 MG/ML 1 ML VIAL IV SCH (06:13)
[2019-02-01 06:21] LABS: HCT 43.2 % (39.0-53.0); HGB 13.8 gm/dL (13.0-17.5); MCH 29.6 pg (25.0-35.0); MCHC 31.9 g/dL (31.0-37.0); MCV 92.8 fL (80.0-100.0); Mean Platelet Volume 6.7; Platelet Count 502 k/uL (150-450); RBC 4.66 m/uL (4.30-5.90); RDW 12.9 % (11.5-15.5); WBC 18.3 k/uL (3.8-10.6)
[2019-02-01 06:32] LABS: INR 1.1 (<1.2); Prothrombin Time 11.8 sec (9.0-12.0)
[2019-02-01 06:33] LABS: Anion Gap 9 mmol/L; Blood Urea Nitrogen 24 mg/dL (9-20); Calcium 9.3 mg/dL (8.4-10.2); Carbon Dioxide 26 mmol/L (22-30); Chloride 103 mmol/L (98-107); Glucose 140 mg/dL (74-99); Potassium 5.5 mmol/L (3.5-5.1); Sodium 138 mmol/L (137-145)
[2019-02-01] MEDS: IBUPROFEN 600 MG TAB PO SCH ×3 (07:29→21:01)
[2019-02-01] MEDS: COLCHICINE 0.6 MG EACH PO SCH ×2 (07:30→21:01)
[2019-02-01] MEDS: METOPROLOL TARTRATE 25 MG TAB PO SCH ×2 (07:30→21:01)
[2019-02-01] MEDS: IPRATROPIUM-ALBUTEROL 3 ML NEB INHALATION SCH ×4 (08:09→20:47)
--- NOTE | 2019-02-01 08:12 | P.PN ---
Subjective Progress Note Date: 02/01/19 Principal diagnosis: Moderate to large pericardial effusion. No previous medical history except cholecystectomy and orthopedic surgery. The patient is currently sitting up in a recliner in no acute distress eating breakfast. Denies pain or shortness of breath. Patient has been ambulatory. States he feels much better than he has over the previous couple of weeks, however he is still concerned about his increased weight. Objective - Vital Signs Vital signs: Vital Signs Temp 98 F 02/01/19 07:48 Pulse 76 02/01/19 07:48 Resp 19 02/01/19 07:48 BP 141/96 02/01/19 07:48 Pulse Ox 90 L 02/01/19 07:48 Intake & Output 01/31/19 02/01/19 02/01/19 18:59 06:59 18:59 Intake Total 600 240 Output Total 500 925 400 Balance 100 -925 -160 Weight 130.5 kg Intake: Oral 600 240 Output: Urine 500 925 400 Other: Voiding Method Toilet # Bowel Movements 1 - Constitutional General appearance: Present: cooperative, no acute distress, obese - Respiratory Details: Lungs sounds clear bilaterally. Respirations even, nonlabored. Currently on room air with oxygen saturation 89-90%. - Cardiovascular Details: S1, S2 present. No distant heart tones noted. Regular rate and rhythm, sinus rhythm on telemetry. Palpable peripheral pulses bilaterally. No edema present. No calf pain or tenderness noted. - Gastrointestinal Gastrointestinal Comment(s): Abdomen soft, nontender, nondistended but slightly bloated. Active bowel sounds present 4 quadrants. Tolerating diet. - Genitourinary Genitourinary Comment(s): Continues to void clear, yellow urine. - Integumentary Integumentary Comment(s): Skin is warm and dry with evidence of good perfusion. - Neurologic Neurologic: Present: CNII-XII intact - Musculoskeletal Musculoskeletal: Present: gait normal, strength equal bilaterally - Psychiatric Psychiatric: Present: A&O x's 3, appropriate affect, intact judgment & insight - Allied health notes Allied health notes reviewed: nursing - Labs CBC & Chem 7: 02/01/19 06:03 02/01/19 06:03 Labs: Abnormal Lab Results - Last 24 Hours (Table) 01/31/19 01/31/19 01/31/19 Range/Units 11:23 16:16 20:17 WBC (3.8-10.6) k/uL Plt Count (150-450) k/uL Potassium (3.5-5.1) mmol/L BUN (9-20) mg/dL Glucose (74-99) mg/dL POC Glucose (mg/dL) 225 H 140 H 174 H (75-99) mg/dL 02/01/19 02/01/19 02/01/19 Range/Units 06:03 06:03 06:10 WBC 18.3 H (3.8-10.6) k/uL Plt Count 502 H (150-450) k/uL Potassium 5.5 H (3.5-5.1) mmol/L BUN 24 H (9-20) mg/dL Glucose 140 H (74-99) mg/dL POC Glucose (mg/dL) 128 H (75-99) mg/dL - Imaging and Cardiology Repeat limited echo reviewed Assessment and Plan Assessment: 1. Moderate to large global pericardial effusion without tamponade physiology 2. New onset paroxysmal atrial fibrillation with rapid ventricular response, currently in normal sinus rhythm 3. Family history of premature coronary artery disease Plan: 1. Continue colchicine, Motrin, Solu-Medrol. 2. Our plan is for pericardial window by Dr. Thibodeaux on 02/02/2019. 3. Paroxysmal a fibrillation management per cardiology. 4. Encourage coughing and deep breathing. Will order incentive spirometry. 5. Medical management per primary care service. 6. More recommendations to follow. Time with Patient: Greater than 30
--- NOTE | 2019-02-01 11:39 | P.PN ---
Subjective 43-year-old gentleman admitted for a viral pericarditis leading to pericardial effusion without any tamponade although she does appear to have some peripheral edema and ascites. Patient was a valid by cardiothoracic surgery for pericardiocentesis continue with the medical management with the anti- inflammatories steroids and colchicine patient chest pain is better no significant change in pericardial effusion 02/01/2019 Patient will undergo pericardial window tomorrow we'll cut down the dose of steroids. Constitutional: Denied any fatigue denied any fever. Cardio vascular: denied any chest pain, palpitations Gastrointestinal denied any nausea vomiting Pulmonary: Denied any shortness of breath cough Neurologic denied any new focal deficits All inpatient medications were reviewed and appropriate changes in these medications as dictated in the interval history and assessment and plan. Objective - Vital Signs Vital signs: Vital Signs Temp 98 F 02/01/19 07:48 Pulse 92 02/01/19 08:19 Resp 19 02/01/19 07:48 BP 141/96 02/01/19 07:48 Pulse Ox 90 L 02/01/19 07:48 Intake & Output 01/31/19 02/01/19 02/01/19 18:59 06:59 18:59 Intake Total 600 240 Output Total 500 925 400 Balance 100 -925 -160 Weight 130.5 kg Intake: Oral 600 240 Output: Urine 500 925 400 Other: Voiding Method Toilet # Bowel Movements 1 - Exam PHYSICAL EXAMINATION: GENERAL: The patient is alert and oriented x3, not in any acute distress. Well developed, well nourished. HEENT: Pupils are round and equally reacting to light. EOMI. No scleral icterus. No conjunctival pallor. Normocephalic, atraumatic. No pharyngeal erythema. No thyromegaly. CARDIOVASCULAR: S1 and S2 present. No murmurs, rubs, or gallops. PULMONARY: Chest is clear to auscultation, no wheezing or crackles. ABDOMEN: Soft, nontender, nondistended, normoactive bowel sounds. No palpable organomegaly. MUSCULOSKELETAL: No joint swelling or deformity. EXTREMITIES: No cyanosis, clubbing, patient does have some anasarca and mild pitting pedal edema NEUROLOGICAL: Gross neurological examination did not reveal any focal deficits. SKIN: No rashes. - Labs CBC & Chem 7: 02/01/19 06:03 02/01/19 06:03 Labs: Abnormal Lab Results - Last 24 Hours (Table) 01/31/19 01/31/19 01/31/19 Range/Units 11:23 16:16 20:17 WBC (3.8-10.6) k/uL Plt Count (150-450) k/uL Potassium (3.5-5.1) mmol/L BUN (9-20) mg/dL Glucose (74-99) mg/dL POC Glucose (mg/dL) 225 H 140 H 174 H (75-99) mg/dL 02/01/19 02/01/19 02/01/19 Range/Units 06:03 06:03 06:10 WBC 18.3 H (3.8-10.6) k/uL Plt Count 502 H (150-450) k/uL Potassium 5.5 H (3.5-5.1) mmol/L BUN 24 H (9-20) mg/dL Glucose 140 H (74-99) mg/dL POC Glucose (mg/dL) 128 H (75-99) mg/dL Assessment and Plan Plan: -Shortness of breath or pleuritic chest pain: Secondary to pleuropericarditis from her recent viral infection patient was started on steroids and inflammatory medications and colchicine patient will be closely monitored. Patient does not have any elevated JVD does not appear to have cardiac tamponade at this time. Patient will undergo pericardial window tomorrow -Recent upper respiratory infection patient will not require any antibiotics patient the appears to have viral infection -Leukocytosis reactive in nature -Tachycardia secondary to pleuropericarditis no evidence of pneumonia, improved Patient will need pharmacologic GI prophylaxis early ablation will not require any pharmacologic DVT prophylaxis
[2019-02-01 11:45] LABS: Glucose,Whole Blood 136 mg/dL (75-99)
--- NOTE | 2019-02-01 11:50 | P.PN ---
Subjective Mr. Zavaleta is seen and examined sitting up in the chair in no acute distress. He continues to feel increased abdominal bloating and girth. He denies significant chest pain or shortness of breath. Oxygen saturation have been on the lower side. He is not wearing supplemental oxygen. Blood pressure 141/96 heart rate 76 afebrile. Laboratory data review WBC 18.3, hemoglobin 13.8, platelets 502, sodium 1:30, potassium 5.5, creatinine 0.78. Currently maintained on colchicine 0.6 mg twice a day, Motrin 600 mg 3 times a day, Lopressor 25 mg twice a day and prednisone 20 mg twice a day. The plan is for pericardial window tomorrow. GENERAL: Well-appearing, well-nourished and in no acute distress. NECK: Supple without JVD or thyromegaly. LUNGS: Breath sounds clear to auscultation bilaterally. Respiration equal and unlabored. No wheezes, rales or rhonchi. HEART: Regular rate and rhythm without murmurs, rubs or gallops. S1 and S2 heard. EXTREMITIES: Normal range of motion, no edema. No clubbing or cyanosis. Peripheral pulses intact. ASSESSMENT Pericardial effusion, large with tamponade Paroxysmal atrial fibrillation PLAN Advised him to use supplemental oxygen to maintain saturation greater than 92%. Continue with colchicine, motrin and ibuprofen. Pericardial window planned for tomorrow with CT surgery. Nurse Practitioner note has been reviewed, I agree with a documented findings and plan of care. Patient was seen and examined. Objective - Vital Signs Vital signs: Vital Signs Temp 98 F 02/01/19 07:48 Pulse 92 02/01/19 08:19 Resp 19 02/01/19 07:48 BP 141/96 02/01/19 07:48 Pulse Ox 90 L 02/01/19 07:48 Intake & Output 01/31/19 02/01/19 02/01/19 18:59 06:59 18:59 Intake Total 600 240 Output Total 500 925 400 Balance 100 -925 -160 Weight 130.5 kg Intake: Oral 600 240 Output: Urine 500 925 400 Other: Voiding Method Toilet # Bowel Movements 1 - Labs CBC & Chem 7: 02/01/19 06:03 02/01/19 06:03 Labs: Abnormal Lab Results - Last 24 Hours (Table) 01/31/19 01/31/19 01/31/19 Range/Units 11:23 16:16 20:17 WBC (3.8-10.6) k/uL Plt Count (150-450) k/uL Potassium (3.5-5.1) mmol/L BUN (9-20) mg/dL Glucose (74-99) mg/dL POC Glucose (mg/dL) 225 H 140 H 174 H (75-99) mg/dL 02/01/19 02/01/19 02/01/19 Range/Units 06:03 06:03 06:10 WBC 18.3 H (3.8-10.6) k/uL Plt Count 502 H (150-450) k/uL Potassium 5.5 H (3.5-5.1) mmol/L BUN 24 H (9-20) mg/dL Glucose 140 H (74-99) mg/dL POC Glucose (mg/dL) 128 H (75-99) mg/dL
[2019-02-01 16:23] LABS: Glucose,Whole Blood 160 mg/dL (75-99)
[2019-02-01 20:37] LABS: Glucose,Whole Blood 131 mg/dL (75-99)
[2019-02-01] MEDS: predniSONE 20 MG TAB PO SCH (21:01)
[2019-02-02] MEDS: METOPROLOL TARTRATE 25 MG TAB PO SCH ×2 (05:07→20:27)
[2019-02-02] MEDS: predniSONE 20 MG TAB PO SCH ×2 (05:07→20:27)
[2019-02-02] MEDS: PANTOPRAZOLE 40 MG TABLET PO SCH (05:07)
[2019-02-02] MEDS: IBUPROFEN 600 MG TAB PO SCH ×3 (05:07→20:27)
[2019-02-02] MEDS ORDERED: DILTIAZEM DRIP BOLUS FROM BAG 1 MG SOLN IV ONE (05:40)
[2019-02-02 05:52] LABS: Glucose,Whole Blood 115 mg/dL (75-99)
[2019-02-02] MEDS: INSULIN ASPART (NovoLOG) 100 UNIT/ML VIAL SQ SCH ×4 (05:57→20:28)
[2019-02-02] MEDS: COLCHICINE 0.6 MG EACH PO SCH ×2 (06:07→20:27)
[2019-02-02] MEDS: DILTIAZEM 125 MG in SODIUM CHLORIDE 0.9% 100 ML IV SCH (06:07)
[2019-02-02] MEDS ORDERED: ceFAZolin IN SWFI 2 GM/20 ML SYRINGE IVP ONE (08:00)
[2019-02-02 08:32] LABS: HCT 46.3 % (39.0-53.0); HGB 14.4 gm/dL (13.0-17.5); MCH 29.2 pg (25.0-35.0); MCHC 31.1 g/dL (31.0-37.0); MCV 93.8 fL (80.0-100.0); Mean Platelet Volume 6.7; Platelet Count 543 k/uL (150-450); RBC 4.93 m/uL (4.30-5.90); WBC 18.9 k/uL (3.8-10.6)
--- NOTE | 2019-02-02 08:41 | P.PN ---
Subjective Progress Note Date: 02/02/19 Principal diagnosis: Moderate to large pericardial effusion. No previous medical history except cholecystectomy and orthopedic surgery. The patient is currently sitting up in a recliner in no acute distress. Denies pain or shortness of breath. Patient has been ambulatory. He went back into atrial fibrillation with rapid ventricular response last night and was reinitiated on IV Cardizem. Objective - Vital Signs Vital signs: Vital Signs Temp 98.4 F 02/02/19 08:07 Pulse 71 02/02/19 08:07 Resp 22 02/02/19 08:07 BP 135/93 02/02/19 08:07 Pulse Ox 93 L 02/02/19 08:07 Intake & Output 02/01/19 02/02/19 02/02/19 18:59 06:59 18:59 Intake Total 600 4.417 Output Total 1999 1125 450 Balance -1400 -1125 -445.583 Weight 130.8 kg Intake: Intake, IV Titration 4.417 Amount Diltiazem 125 mg In 4.417 Sodium Chloride 0.9% 100 ml @ 5 MG/HR 5 mls/hr IV .Q24H [facility] Rx#:[id number] Oral 600 Output: Urine 1999 1125 450 Other: Voiding Method Urinal # Voids 1 # Bowel Movements 1 - Constitutional General appearance: Present: cooperative, no acute distress, obese - Respiratory Details: Lungs sounds clear bilaterally. Respirations even, nonlabored. Currently on room air with oxygen saturation 91%. - Cardiovascular Details: S1, S2 present. No distant heart tones noted. Uncontrolled irregular rate and rhythm, A. fib with RVR on telemetry. Palpable peripheral pulses bilaterally. No edema present. No calf pain or tenderness noted. - Gastrointestinal Gastrointestinal Comment(s): Abdomen soft, nontender, nondistended but slightly bloated. Active bowel sounds present 4 quadrants. Nothing by mouth since midnight for surgery today. - Genitourinary Genitourinary Comment(s): Continues to void clear, yellow urine. - Integumentary Integumentary Comment(s): Skin is warm and dry with evidence of good perfusion. - Neurologic Neurologic: Present: CNII-XII intact - Musculoskeletal Musculoskeletal: Present: gait normal, strength equal bilaterally - Psychiatric Psychiatric: Present: A&O x's 3, appropriate affect, intact judgment & insight - Allied health notes Allied health notes reviewed: nursing - Labs CBC & Chem 7: 02/01/19 06:03 02/01/19 06:03 Labs: Abnormal Lab Results - Last 24 Hours (Table) 02/01/19 02/01/19 02/01/19 Range/Units 11:18 16:18 20:36 POC Glucose (mg/dL) 136 H 160 H 131 H (75-99) mg/dL 02/02/19 Range/Units 05:51 POC Glucose (mg/dL) 115 H (75-99) mg/dL Assessment and Plan Assessment: 1. Moderate to large global pericardial effusion without tamponade physiology 2. New onset paroxysmal atrial fibrillation with rapid ventricular response, currently in uncontrolled A. fib 3. Family history of premature coronary artery disease Plan: 1. Continue colchicine, Motrin, steroids. 2. Our plan is for pericardial window by Dr. Thibodeaux this morning. 3. Paroxysmal a fibrillation management per cardiology. 4. Encourage coughing and deep breathing. 5. Medical management per primary care service. 6. More recommendations to follow. Time with Patient: Greater than 30
[2019-02-02 08:44] LABS: Anion Gap 7 mmol/L; Blood Urea Nitrogen 32 mg/dL (9-20); Calcium 9.1 mg/dL (8.4-10.2); Carbon Dioxide 28 mmol/L (22-30); Chloride 104 mmol/L (98-107); Glucose 113 mg/dL (74-99); Potassium 5.8 mmol/L (3.5-5.1); Sodium 139 mmol/L (137-145)
[2019-02-02] MEDS: IPRATROPIUM-ALBUTEROL 3 ML NEB INHALATION SCH ×4 (08:48→20:03)
[2019-02-02] MEDS ORDERED: IV FLUID CONTINUATION 1,000 ML IV ONE (08:50)
[2019-02-02] MEDS ORDERED: SODIUM CHLORIDE 0.9% 500 ML 500 ML IV ONE (08:50)
[2019-02-02] MEDS ORDERED: MIDAZOLAM 2 MG/2 ML VIAL IV ONE (09:06)
[2019-02-02] MEDS ORDERED: fentaNYL (PF) 50 MCG/ML 2 ML AMP IV ONE (09:06)
[2019-02-02] MEDS ORDERED: PHENYLEPHRINE-0.9% NACL SYG 1 MG/10 ML SYRINGE ONE (09:24)
[2019-02-02] MEDS ORDERED: ROCURONIUM BROMIDE 10 MG/ML 10 ML VIAL IV ONE (09:24)
[2019-02-02] MEDS ORDERED: fentaNYL (PF) 50 MCG/ML 2 ML AMP ONE (09:24)
[2019-02-02] MEDS ORDERED: GLYCOPYRROLATE 0.2 MG/ML 2 ML VIAL ONE (09:24)
[2019-02-02] MEDS ORDERED: HYDROmorphone (PF) 1 MG/ML ONE (09:24)
[2019-02-02] MEDS ORDERED: MIDAZOLAM 2 MG/2 ML VIAL ONE (09:24)
[2019-02-02] MEDS ORDERED: ETOMIDATE 2 MG/ML 10 ML VIAL ONE (09:24)
[2019-02-02] MEDS ORDERED: NEOSTIGMINE 1 MG/ML 10 ML VIAL ONE (09:24)
[2019-02-02] MEDS ORDERED: LACTATED RINGERS 1,000 ML IV ONE (10:27)
[2019-02-02 10:55] LABS: Hemoglobin A1C 5.5 % (4.0-6.0)
--- NOTE | 2019-02-02 11:38 | OP ---
OPERATIVE REPORT DATE OF SURGERY: 02/02/2019 PREOPERATIVE DIAGNOSIS: Pericardial effusion. POSTOPERATIVE DIAGNOSE: Pericardial effusion. PROCEDURE: 1. Pericardial window. 2. Transesophageal echocardiogram. SURGEON: Maurice Thibodeaux MD JEWELRY SETTER: None. ANESTHESIA: General. EBL: Minimal. SPECIMEN: 1. Pericardial fluid. 2. Pericardial tissue. COMPLICATIONS: None. INDICATION: The patient is a 43-year-old male who reports feeling unwell over the past several weeks. He did see his primary care physician who started him on antibiotics without improvement. He presented to the hospital after becoming progressively more short of breath and lethargic. Workup revealed a large pericardial effusion without clinical evidence of tamponade. The patient was treated conservatively by the Cardiology Service initially, but as the fluid was not decreasing, pericardial window was recommended. The risks, benefits, and alternatives to this procedure were discussed with the patient. All his questions were answered. Consent was obtained. FINDINGS: Approximately 750 mL of bloody fluid drained from the pericardial space. PROCEDURE IN DETAIL: The patient was taken the operating room and placed supine on the operating table. After the induction of general anesthesia, he was prepped and draped in the usual sterile fashion. Transesophageal echocardiogram revealed a moderate to large circumferential pericardial effusion. A vertical midline incision was created in the epigastric region. Dissection was taken down through the subcutaneous tissue. The patient was rather obese so this was a fairly deep dissection. Dissection continued beneath the left rib cage. The pericardium was eventually identified. A small incision was created. Approximately 750 mL of bloody fluid was drained from the pericardial space. A portion of this fluid was sent for microbiology. The remainder was sent for cytology. A segment of the pericardium was then excised. A portion of this pericardium was sent for microbiology and the remainder sent to pathology. Hemostasis was assured. Followup transesophageal echocardiogram in imaging revealed complete resolution of the pericardial effusion. A right angled 32-Divehi chest tube was placed and directed into a retrocardiac position. It was secured to the skin using suture. The wound was then closed in layers. A sterile dressing was applied. The patient appeared to tolerate the procedure well. There were no immediate complications. He returned to the recovery room in stable condition. MMODL / IJN: [id number] / [facility]ITALSoc[facility]
--- NOTE | 2019-02-02 11:50 | XR ---
EXAMINATION TYPE: XR chest 1V portable DATE OF EXAM: 02/02/2019 COMPARISON: 01/29/2019 HISTORY: Postop examination. Prior chest tube. TECHNIQUE: Single frontal view of the chest is obtained. FINDINGS: There is a new retrocardiac opacity with obscuration of the mid and medial left hemidiaphr agm, new from the prior. New right infrahilar opacity is also seen. Remainder the lungs are clear. Ca rdia mediastinal silhouette is mildly enlarged. Osseous structures are grossly intact. IMPRESSION: New bibasilar opacities in comparison to the prior, likely postoperative atelectasis.
--- NOTE | 2019-02-02 12:10 | ECHOF ---
Referral Reason:limited echo to assess pericardial eff MEASUREMENTS -------- HEIGHT: 182.9 cm WEIGHT: 130.6 kg BP: FINDINGS -------- Resting tachycardia (HR>100bpm). Limited Study Moderate to large global pericardial effusion CONCLUSIONS -------- 1. Resting tachycardia (HR>100bpm). 2. Limited Study 3. Moderate to large global pericardial effusion [employer]: Chen Mart RDCS
[2019-02-02 12:25] LABS: Glucose,Whole Blood 108 mg/dL (75-99)
--- NOTE | 2019-02-02 13:25 | P.PN ---
Subjective 43-year-old gentleman admitted for a viral pericarditis leading to pericardial effusion without any tamponade although she does appear to have some peripheral edema and ascites. Patient was a valid by cardiothoracic surgery for pericardiocentesis continue with the medical management with the anti- inflammatories steroids and colchicine patient chest pain is better no significant change in pericardial effusion 02/01/2019 Patient will undergo pericardial window tomorrow we'll cut down the dose of steroids. 02/02/2019 patient had a Pericardial window and a chest tube placement on the left side chest tube has about 50 mL of drainage. Constitutional: Denied any fatigue denied any fever. Cardio vascular: denied any chest pain, palpitations Gastrointestinal denied any nausea vomiting Pulmonary: Denied any shortness of breath cough Neurologic denied any new focal deficits All inpatient medications were reviewed and appropriate changes in these medications as dictated in the interval history and assessment and plan. Objective - Vital Signs Vital signs: Vital Signs Temp 97 F L 02/02/19 11:09 Pulse 59 L 02/02/19 11:55 Resp 16 02/02/19 11:55 BP 142/67 02/02/19 11:55 Pulse Ox 96 02/02/19 11:55 Intake & Output 02/01/19 02/02/19 02/02/19 18:59 06:59 18:59 Intake Total 600 1184.417 Output Total 1999 1125 490 Balance -1400 -1125 694.417 Weight 130.8 kg Intake: IV 1180 Intake, IV Titration 4.417 Amount Diltiazem 125 mg In 4.417 Sodium Chloride 0.9% 100 ml @ 5 MG/HR 5 mls/hr IV .Q24H [facility] Rx#:[id number] Oral 600 Output: Urine 1999 1125 450 Pleural Fluid 20 Estimated Blood Loss 20 Other: Voiding Method Urinal # Voids 1 # Bowel Movements 1 - Exam PHYSICAL EXAMINATION: GENERAL: The patient is alert and oriented x3, not in any acute distress. Well developed, well nourished. HEENT: Pupils are round and equally reacting to light. EOMI. No scleral icterus. No conjunctival pallor. Normocephalic, atraumatic. No pharyngeal erythema. No thyromegaly. CARDIOVASCULAR: S1 and S2 present. No murmurs, rubs, or gallops. PULMONARY: Chest is clear to auscultation, no wheezing or crackles. Patient has a left chest chest tube with bloody drainage ABDOMEN: Soft, nontender, nondistended, normoactive bowel sounds. No palpable organomegaly. MUSCULOSKELETAL: No joint swelling or deformity. EXTREMITIES: No cyanosis, clubbing, patient does have some anasarca and mild pitting pedal edema NEUROLOGICAL: Gross neurological examination did not reveal any focal deficits. SKIN: No rashes. - Labs CBC & Chem 7: 02/02/19 08:13 02/02/19 08:13 Labs: Abnormal Lab Results - Last 24 Hours (Table) 02/01/19 02/01/19 02/02/19 Range/Units 16:18 20:36 05:51 WBC (3.8-10.6) k/uL Plt Count (150-450) k/uL Potassium (3.5-5.1) mmol/L BUN (9-20) mg/dL Glucose (74-99) mg/dL POC Glucose (mg/dL) 160 H 131 H 115 H (75-99) mg/dL 02/02/19 02/02/19 02/02/19 Range/Units 08:13 08:13 12:24 WBC 18.9 H (3.8-10.6) k/uL Plt Count 543 H (150-450) k/uL Potassium 5.8 H (3.5-5.1) mmol/L BUN 32 H (9-20) mg/dL Glucose 113 H (74-99) mg/dL POC Glucose (mg/dL) 108 H (75-99) mg/dL Assessment and Plan Plan: -Shortness of breath or pleuritic chest pain: Secondary to pleuropericarditis from her recent viral infection patient was started on steroids and inflammatory medications and colchicine patient will be closely monitored. Patient does not have any elevated JVD does not appear to have cardiac tamponade at this time. did undergo pericardial window has a chest tube on the left side -Recent upper respiratory infection patient will not require any antibiotics patient the appears to have viral infection -Atrial fibrillation proximal patient is in metoprolol was on Cardizem last night which was discontinued. Presently sinus rhythm. -Mild asthma without any acute exacerbation presently had exacerbation on admission -Leukocytosis reactive in nature of improved -Tachycardia secondary to pleuropericarditis no evidence of pneumonia, improved Patient will need pharmacologic GI prophylaxis early ablation will not require any pharmacologic DVT prophylaxis
--- NOTE | 2019-02-02 15:04 | P.PN ---
Subjective Progress Note Date: 02/02/19 This is a pleasant 43-year-old gentleman who is seen in consultation by Dr. VC Beckman yesterday he presented to the hospital with symptoms of left- sided chest discomfort, abdominal bloating, and symptoms of mild shortness of breath for a one week duration. He did have symptoms prior to that which resemble flulike symptoms, productive cough, nasal congestion sore throat and fever which have been going through his house as well. He had been prescribed Zithromax as an outpatient. He was found on admission here to have a significant pericardial effusion, moderate to large, evidence of right atrial systolic collapse with no significant right ventricular diastolic collapse noted. IVC was dilated and did not collapse, suggestive of elevated right atrial pressure. There is no definite evidence of tamponade. Blood pressure was stable. Through the night last night patient went into atrial fibrillation with a rapid ventricular response and was started on IV Cardizem. This morning has converted back to normal sinus rhythm. Patient was initiated on Solu- Medrol as well as Motrin and colchicine. Sed rate was elevated at 25, C- reactive protein 52.5 viral titers have also been ordered. Yet pending. At the time of my examination this morning the patient feels well, he is sitting up in his chair at bedside, and time asymptomatic. We did repeat a limited echocardiogram with Doppler study this morning which revealed approximately the same amount of fluid. The patient, and may proceed with draining of the pericardial fluid. 02/02/2019 Patient had a limited echo performed this morning which revealed a pretty much the same amount of pericardial fluid for this reason patient was okayed to go down for pericardial window. Hemodynamically he is been stable. He did go back into atrial fibrillation through the night last night and continues to be in A. fib at this time. Objective - Vital Signs Vital signs: Vital Signs Temp 97 F L 02/02/19 11:09 Pulse 59 L 02/02/19 11:55 Resp 16 02/02/19 11:55 BP 142/67 02/02/19 11:55 Pulse Ox 96 02/02/19 11:55 Intake & Output 02/01/19 02/02/19 02/02/19 18:59 06:59 18:59 Intake Total 600 1184.417 Output Total 1999 1125 490 Balance -1400 -1125 694.417 Weight 130.8 kg Intake: IV 1180 Intake, IV Titration 4.417 Amount Diltiazem 125 mg In 4.417 Sodium Chloride 0.9% 100 ml @ 5 MG/HR 5 mls/hr IV .Q24H [facility] Rx#:[id number] Oral 600 Output: Urine 2000 1125 450 Pleural Fluid 20 Estimated Blood Loss 20 Other: Voiding Method Urinal # Voids 1 # Bowel Movements 1 - Exam PHYSICAL EXAMINATION: GENERAL: 43-year-old gentleman in no acute distress at the time of my examination HEENT: Head is atraumatic, normocephalic. Pupils equal, round. Sclera anicteric. Conjunctiva are clear. Mucous membranes of the mouth are moist. Neck is supple. There is no elevated jugular venous pressure. No carotid bruit is heard. HEART EXAMINATION: Heart S1, S2 irregularly irregular . No murmur or gallop heard. CHEST EXAMINATION: Lungs are clear to auscultation and precussion. No chest wall tenderness is noted on palpation or with deep breathing. ABDOMEN: Soft, nontender. Bowel sounds are heard. No organomegaly noted. EXTREMITIES: 2+ peripheral pulses with no evidence of peripheral edema and no calf tenderness noted. NEUROLOGIC patient is awake, alert and oriented 3. . - Labs CBC & Chem 7: 02/02/19 08:13 02/02/19 08:13 Labs: Abnormal Lab Results - Last 24 Hours (Table) 02/01/19 02/01/19 02/02/19 Range/Units 16:18 20:36 05:51 WBC (3.8-10.6) k/uL Plt Count (150-450) k/uL Potassium (3.5-5.1) mmol/L BUN (9-20) mg/dL Glucose (74-99) mg/dL POC Glucose (mg/dL) 160 H 131 H 115 H (75-99) mg/dL 02/02/19 02/02/19 02/02/19 Range/Units 08:13 08:13 12:24 WBC 18.9 H (3.8-10.6) k/uL Plt Count 543 H (150-450) k/uL Potassium 5.8 H (3.5-5.1) mmol/L BUN 32 H (9-20) mg/dL Glucose 113 H (74-99) mg/dL POC Glucose (mg/dL) 108 H (75-99) mg/dL Assessment and Plan Plan: Assessment and plan #1 moderate to large pericardial effusion, likely secondary to recent viral infection. #2 paroxysmal atrial fibrillation Plan Repeat echocardiogram with Doppler study this morning revealed a similar pericardial effusion, we will continue with steroids, Motrin, and colchicine. Patient will go down for pericardial window today. We will continue to follow. DNP note has been reviewed, I agree with a documented findings and plan of care. Patient was seen and examined.
[2019-02-02 16:41] LABS: Glucose,Whole Blood 101 mg/dL (75-99)
[2019-02-02 20:21] LABS: Glucose,Whole Blood 116 mg/dL (75-99)
[2019-02-03] MEDS: DILTIAZEM 125 MG in SODIUM CHLORIDE 0.9% 100 ML IV SCH (06:04)
[2019-02-03 06:25] LABS: Glucose,Whole Blood 113 mg/dL (75-99)
[2019-02-03] MEDS: INSULIN ASPART (NovoLOG) 100 UNIT/ML VIAL SQ SCH (06:26)
[2019-02-03 06:27] LABS: HCT 46.6 % (39.0-53.0); HGB 14.9 gm/dL (13.0-17.5); Hypochromasia Slight; MCV 93.9 fL (80.0-100.0); Mean Platelet Volume 7.3; Platelet Count 531 k/uL (150-450); RBC 4.96 m/uL (4.30-5.90); WBC 14.6 k/uL (3.8-10.6)
[2019-02-03] MEDS: PANTOPRAZOLE 40 MG TABLET PO SCH (06:36)
[2019-02-03 06:37] LABS: Anion Gap 7 mmol/L; Blood Urea Nitrogen 26 mg/dL (9-20); Carbon Dioxide 27 mmol/L (22-30); Chloride 104 mmol/L (98-107); Glucose 109 mg/dL (74-99); Potassium 5.9 mmol/L (3.5-5.1); Sodium 138 mmol/L (137-145)
[2019-02-03] MEDS ORDERED: SODIUM POLYSTYRENE SULFONATE 15 GM/60 ML BOTTLE PO STA ×2 (07:42→18:12)
[2019-02-03] MEDS: METOPROLOL TARTRATE 25 MG TAB PO SCH ×2 (07:50→20:56)
[2019-02-03] MEDS: COLCHICINE 0.6 MG EACH PO SCH ×2 (07:50→20:56)
[2019-02-03] MEDS: predniSONE 20 MG TAB PO SCH ×2 (07:50→20:56)
[2019-02-03] MEDS: IBUPROFEN 600 MG TAB PO SCH ×3 (07:50→20:56)
[2019-02-03] MEDS: IPRATROPIUM-ALBUTEROL 3 ML NEB INHALATION SCH ×4 (08:23→20:03)
--- NOTE | 2019-02-03 09:11 | XR ---
EXAMINATION TYPE: XR chest 2V DATE OF EXAM: 02/03/2019 COMPARISON: 02/02/2019 HISTORY: 43 year-old male status post pericardial window TECHNIQUE: PA and lateral views FINDINGS: Heart remains upper limits of normal in size. Some patchy medial right basilar opacity is demonstrate d. Small pleural effusions with bibasilar densities. IMPRESSION: Small pleural effusions with adjacent atelectasis and/or consolidation persist. Medial right basilar opacity is increased, possible atelectasis or developing infiltrate.
--- NOTE | 2019-02-03 13:19 | P.PN ---
Subjective Progress Note Date: 02/03/19 Principal diagnosis: Moderate to large pericardial effusion. No previous medical history except cholecystectomy and orthopedic surgery. New-onset paroxysmal atrial fibrillation. POD #1 pericardial window and intraoperative transesophageal echocardiogram The patient is currently sitting up in a recliner in no acute distress. Denies pain or shortness of breath. Patient has been ambulatory. Remains in normal sinus rhythm. Pericardial window completed yesterday with drainage of 750 mL fluid. Objective - Vital Signs Vital signs: Vital Signs Temp 97.6 F 02/03/19 07:55 Pulse 82 02/03/19 08:33 Resp 20 02/03/19 07:55 BP 132/76 02/03/19 07:55 Pulse Ox 92 L 02/03/19 07:55 Intake & Output 02/02/19 02/03/19 02/03/19 18:59 06:59 18:59 Intake Total 1424.417 360 240 Output Total 790 2775 0 Balance 634.417 -2415 240 Weight 129.9 kg Intake: IV 1180 Intake, IV Titration 4.417 Amount Diltiazem 125 mg In 4.417 Sodium Chloride 0.9% 100 ml @ 5 MG/HR 5 mls/hr IV .Q24H [facility] Rx#:[id number] Oral 240 360 240 Output: Chest Tube Drainage 75 0 Chest Tube Mediastinal 75 0 Urine 750 2700 Pleural Fluid 20 Estimated Blood Loss 20 Other: Voiding Method Urinal # Voids 2 - Constitutional General appearance: Present: cooperative, no acute distress, obese - Respiratory Details: Lungs sounds clear bilaterally. Respirations even, nonlabored. Currently on room air with oxygen saturation 90%. Able to achieve 2250 mL on his incentive spirometry. - Cardiovascular Details: S1, S2 present. No distant heart tones noted. Regular rate and rhythm, sinus rhythm on telemetry. Palpable peripheral pulses bilaterally. No edema present. No calf pain or tenderness noted. Mediastinal chest tube present to waterseal, 40 mL serosanguineous drainage overnight, 180 mL since surgery. - Gastrointestinal Gastrointestinal Comment(s): Abdomen soft, nontender, nondistended but slightly bloated. Active bowel sounds present 4 quadrants. Tolerating diet. - Genitourinary Genitourinary Comment(s): Continues to void clear, yellow urine. - Integumentary Integumentary Comment(s): Skin is warm and dry with evidence of good perfusion. - Neurologic Neurologic: Present: CNII-XII intact - Musculoskeletal Musculoskeletal: Present: gait normal, strength equal bilaterally - Psychiatric Psychiatric: Present: A&O x's 3, appropriate affect, intact judgment & insight - Allied health notes Allied health notes reviewed: nursing - Labs CBC & Chem 7: 02/03/19 05:59 02/03/19 12:12 Labs: Abnormal Lab Results - Last 24 Hours (Table) 02/02/19 02/02/19 02/02/19 Range/Units 12:24 16:34 20:20 WBC (3.8-10.6) k/uL Plt Count (150-450) k/uL Potassium (3.5-5.1) mmol/L BUN (9-20) mg/dL Glucose (74-99) mg/dL POC Glucose (mg/dL) 108 H 101 H 116 H (75-99) mg/dL 02/03/19 02/03/19 02/03/19 Range/Units 05:59 05:59 06:24 WBC 14.6 H (3.8-10.6) k/uL Plt Count 531 H (150-450) k/uL Potassium 5.9 H (3.5-5.1) mmol/L BUN 26 H (9-20) mg/dL Glucose 109 H (74-99) mg/dL POC Glucose (mg/dL) 113 H (75-99) mg/dL Microbiology - Last 24 Hours (Table) 02/02/19 10:33 Tissue Culture - Preliminary Other - Other 02/02/19 10:33 Acid Fast Bacilli Smear - Final Pericardial Fluid Acid Fast Bacilli Culture - Preliminary 02/02/19 10:33 Gram Stain - Preliminary Pericardial Fluid Body Fluid Culture - Preliminary 02/02/19 10:33 Anaerobic Culture - Preliminary Pericardial Fluid Assessment and Plan Assessment: 1. Moderate to large global pericardial effusion without tamponade physiology, status post pericardial window with drainage of 750 mL bloody fluid 2. New onset paroxysmal atrial fibrillation with rapid ventricular response, currently in sinus rhythm 3. Family history of premature coronary artery disease Plan: 1. Will continue to monitor mediastinal chest tube output. Likely will discontinue in the next 24-48 hours. 2. Continue colchicine, Motrin, steroids per primary. 3. Paroxysmal a fibrillation management per cardiology. 4. Encourage coughing and deep breathing. 5. Medical management per primary care service. 6. More recommendations to follow. Time with Patient: Greater than 30
--- NOTE | 2019-02-03 14:02 | P.PN ---
Subjective Progress Note Date: 02/03/19 This is a pleasant 43-year-old gentleman who is seen in consultation by Dr. VC Beckman yesterday he presented to the hospital with symptoms of left- sided chest discomfort, abdominal bloating, and symptoms of mild shortness of breath for a one week duration. He did have symptoms prior to that which resemble flulike symptoms, productive cough, nasal congestion sore throat and fever which have been going through his house as well. He had been prescribed Zithromax as an outpatient. He was found on admission here to have a significant pericardial effusion, moderate to large, evidence of right atrial systolic collapse with no significant right ventricular diastolic collapse noted. IVC was dilated and did not collapse, suggestive of elevated right atrial pressure. There is no definite evidence of tamponade. Blood pressure was stable. Through the night last night patient went into atrial fibrillation with a rapid ventricular response and was started on IV Cardizem. This morning has converted back to normal sinus rhythm. Patient was initiated on Solu-Medrol as well as Motrin and colchicine. Sed rate was elevated at 25, C-reactive protein 52.5 viral titers have also been ordered. Yet pending. At the time of my examination this morning the patient feels well, he is sitting up in his chair at bedside, and time asymptomatic. We did repeat a limited echocardiogram with Doppler study this morning which revealed approximately the same amount of fluid. The patient, and may proceed with draining of the pericardial fluid. 02/02/2019 Patient had a limited echo performed this morning which revealed a pretty much the same amount of pericardial fluid for this reason patient was okayed to go down for pericardial window. Hemodynamically he is been stable. He did go back into atrial fibrillation through the night last night and continues to be in A. fib at this time. 02/03/2019 underwent a pericardial window and intraoperative COMPA yesterday, 750 mL of fluid was removed, he continues to have with drainage in place, drainage is very minimal today. Overall the patient feels well, he states that he's been diuresing well through the night and his weight is down significantly today. Blood pressure 132/70 with a heart rate in the 80s. In normal sinus rhythm. Objective - Vital Signs Vital signs: Vital Signs Temp 97.3 F L 02/03/19 12:00 Pulse 80 02/03/19 12:00 Resp 20 02/03/19 12:00 BP 138/84 02/03/19 12:00 Pulse Ox 92 L 02/03/19 12:00 Intake & Output 02/02/19 02/03/19 02/03/19 18:59 06:59 18:59 Intake Total 1424.417 360 600 Output Total 790 2775 2400 Balance 844.417 -8467 -1800 Weight 129.9 kg Intake: IV 1180 Intake, IV Titration 4.417 Amount Diltiazem 125 mg In 4.417 Sodium Chloride 0.9% 100 ml @ 5 MG/HR 5 mls/hr IV .Q24H [facility] Rx#:[id number] Oral 240 360 600 Output: Chest Tube Drainage 75 0 Chest Tube Mediastinal 75 0 Urine 750 2700 2400 Pleural Fluid 20 Estimated Blood Loss 20 Other: Voiding Method Urinal # Voids 2 2 - Exam PHYSICAL EXAMINATION: GENERAL: 43-year-old gentleman in no acute distress at the time of my examination HEENT: Head is atraumatic, normocephalic. Pupils equal, round. Sclera anicteric. Conjunctiva are clear. Mucous membranes of the mouth are moist. Neck is supple. There is no elevated jugular venous pressure. No carotid bruit is heard. HEART EXAMINATION: Heart S1, S2 irregularly irregular . No murmur or gallop heard. Mediastinal chest tube in place. CHEST EXAMINATION: Lungs are clear to auscultation and precussion. No chest wall tenderness is noted on palpation or with deep breathing. ABDOMEN: Soft, nontender. Bowel sounds are heard. No organomegaly noted. EXTREMITIES: 2+ peripheral pulses with no evidence of peripheral edema and no calf tenderness noted. NEUROLOGIC patient is awake, alert and oriented 3. . - Labs CBC & Chem 7: 02/03/19 05:59 02/03/19 12:12 Labs: Abnormal Lab Results - Last 24 Hours (Table) 02/02/19 02/02/19 02/03/19 Range/Units 16:34 20:20 05:59 WBC 14.6 H (3.8-10.6) k/uL Plt Count 531 H (150-450) k/uL Potassium (3.5-5.1) mmol/L BUN (9-20) mg/dL Glucose (74-99) mg/dL POC Glucose (mg/dL) 101 H 116 H (75-99) mg/dL 02/03/19 02/03/19 02/03/19 Range/Units 05:59 06:24 12:12 WBC (3.8-10.6) k/uL Plt Count (150-450) k/uL Potassium 5.9 H 5.4 H (3.5-5.1) mmol/L BUN 26 H (9-20) mg/dL Glucose 109 H (74-99) mg/dL POC Glucose (mg/dL) 113 H (75-99) mg/dL Microbiology - Last 24 Hours (Table) 02/02/19 10:33 Gram Stain - Preliminary Pericardial Fluid Body Fluid Culture - Preliminary 02/02/19 10:33 Tissue Culture - Preliminary Other - Other 02/02/19 10:33 Acid Fast Bacilli Smear - Final Pericardial Fluid Acid Fast Bacilli Culture - Preliminary 02/02/19 10:33 Anaerobic Culture - Preliminary Pericardial Fluid Assessment and Plan Plan: Assessment and plan #1 moderate to large pericardial effusion, likely secondary to recent viral infection. #2 paroxysmal atrial fibrillation Plan From cardiology's perspective, we'll continue with current medications. Mediastinal chest tube to remain in place for another 24 hours. DNP note has been reviewed, I agree with a documented findings and plan of care. Patient was seen and examined.
--- NOTE | 2019-02-03 14:23 | P.PN ---
Subjective 43-year-old gentleman admitted for a viral pericarditis leading to pericardial effusion without any tamponade although she does appear to have some peripheral edema and ascites. Patient was a valid by cardiothoracic surgery for pericardiocentesis continue with the medical management with the anti- inflammatories steroids and colchicine patient chest pain is better no significant change in pericardial effusion 02/01/2019 Patient will undergo pericardial window tomorrow we'll cut down the dose of steroids. 02/02/2019 patient had a Pericardial window and a chest tube placement on the left side chest tube has about 50 mL of drainage. 01/31/2019 patient the continuous to have chest tube with total drainage of around 1 50 mL. Patient is hypokalemic received capsulate did not move his bowel yet after that. Constitutional: Denied any fatigue denied any fever. Cardio vascular: denied any chest pain, palpitations Gastrointestinal denied any nausea vomiting Pulmonary: Denied any shortness of breath cough Neurologic denied any new focal deficits All inpatient medications were reviewed and appropriate changes in these medications as dictated in the interval history and assessment and plan. Objective - Vital Signs Vital signs: Vital Signs Temp 97.3 F L 02/03/19 12:00 Pulse 80 02/03/19 12:00 Resp 20 02/03/19 12:00 BP 138/84 02/03/19 12:00 Pulse Ox 92 L 02/03/19 12:00 Intake & Output 02/02/19 02/03/19 02/03/19 18:59 06:59 18:59 Intake Total 1424.417 360 600 Output Total 790 2775 2400 Balance 634.417 -2415 -1800 Weight 129.9 kg Intake: IV 1180 Intake, IV Titration 4.417 Amount Diltiazem 125 mg In 4.417 Sodium Chloride 0.9% 100 ml @ 5 MG/HR 5 mls/hr IV .Q24H [facility] Rx#:[id number] Oral 240 360 600 Output: Chest Tube Drainage 75 0 Chest Tube Mediastinal 75 0 Urine 750 2700 2400 Pleural Fluid 20 Estimated Blood Loss 20 Other: Voiding Method Urinal # Voids 2 2 - Exam PHYSICAL EXAMINATION: GENERAL: The patient is alert and oriented x3, not in any acute distress. Well developed, well nourished. HEENT: Pupils are round and equally reacting to light. EOMI. No scleral icterus. No conjunctival pallor. Normocephalic, atraumatic. No pharyngeal erythema. No thyromegaly. CARDIOVASCULAR: S1 and S2 present. No murmurs, rubs, or gallops. PULMONARY: Chest is clear to auscultation, no wheezing or crackles. Patient has a left chest chest tube with bloody drainage ABDOMEN: Soft, nontender, nondistended, normoactive bowel sounds. No palpable organomegaly. MUSCULOSKELETAL: No joint swelling or deformity. EXTREMITIES: No cyanosis, clubbing, patient does have some anasarca and mild pitting pedal edema NEUROLOGICAL: Gross neurological examination did not reveal any focal deficits. SKIN: No rashes. - Labs CBC & Chem 7: 02/03/19 05:59 02/03/19 12:12 Labs: Abnormal Lab Results - Last 24 Hours (Table) 02/02/19 02/02/19 02/03/19 Range/Units 16:34 20:20 05:59 WBC 14.6 H (3.8-10.6) k/uL Plt Count 531 H (150-450) k/uL Potassium (3.5-5.1) mmol/L BUN (9-20) mg/dL Glucose (74-99) mg/dL POC Glucose (mg/dL) 101 H 116 H (75-99) mg/dL 02/03/19 02/03/19 02/03/19 Range/Units 05:59 06:24 12:12 WBC (3.8-10.6) k/uL Plt Count (150-450) k/uL Potassium 5.9 H 5.4 H (3.5-5.1) mmol/L BUN 26 H (9-20) mg/dL Glucose 109 H (74-99) mg/dL POC Glucose (mg/dL) 113 H (75-99) mg/dL Microbiology - Last 24 Hours (Table) 02/02/19 10:33 Gram Stain - Preliminary Pericardial Fluid Body Fluid Culture - Preliminary 02/02/19 10:33 Tissue Culture - Preliminary Other - Other 02/02/19 10:33 Acid Fast Bacilli Smear - Final Pericardial Fluid Acid Fast Bacilli Culture - Preliminary 02/02/19 10:33 Anaerobic Culture - Preliminary Pericardial Fluid Assessment and Plan Plan: -Shortness of breath or pleuritic chest pain: Secondary to pleuropericarditis from her recent viral infection patient was started on steroids and inflammatory medications and colchicine patient will be closely monitored. Patient does not have any elevated JVD does not appear to have cardiac tamponade at this time. did undergo pericardial window has a chest tube on the left side -Hyperkalemia etiology is not clear To let as mentioned above -Recent upper respiratory infection patient will not require any antibiotics patient the appears to have viral infection -Atrial fibrillation proximal patient is in metoprolol was on Cardizem last night which was discontinued. Presently sinus rhythm. -Mild asthma without any acute exacerbation presently had exacerbation on admission -Leukocytosis reactive in nature of improved -Tachycardia secondary to pleuropericarditis no evidence of pneumonia, improved Patient is on pharmacologic GI prophylaxis early ambulation will not require any pharmacologic DVT prophylaxis
[2019-02-04 06:34] LABS: HCT 47.8 % (39.0-53.0); HGB 15.1 gm/dL (13.0-17.5); MCHC 31.5 g/dL (31.0-37.0); MCV 92.2 fL (80.0-100.0); Mean Platelet Volume 6.9; Platelet Count 475 k/uL (150-450); RBC 5.18 m/uL (4.30-5.90); RDW 12.8 % (11.5-15.5)
[2019-02-04 06:53] LABS: Anion Gap 4 mmol/L; Blood Urea Nitrogen 23 mg/dL (9-20); Calcium 8.8 mg/dL (8.4-10.2); Carbon Dioxide 30 mmol/L (22-30); Chloride 104 mmol/L (98-107); Glucose 107 mg/dL (74-99); Sodium 138 mmol/L (137-145)
[2019-02-04 06:55] LABS: Potassium 5.7 mmol/L (3.5-5.1)
[2019-02-04] MEDS: PANTOPRAZOLE 40 MG TABLET PO SCH (07:54)
[2019-02-04] MEDS: METOPROLOL TARTRATE 25 MG TAB PO SCH (07:54)
[2019-02-04] MEDS: IBUPROFEN 600 MG TAB PO SCH ×2 (07:54→16:38)
[2019-02-04] MEDS: predniSONE 20 MG TAB PO SCH (07:54)
[2019-02-04] MEDS: COLCHICINE 0.6 MG EACH PO SCH (07:55)
[2019-02-04] MEDS: IPRATROPIUM-ALBUTEROL 3 ML NEB INHALATION SCH ×3 (09:09→15:24)
--- NOTE | 2019-02-04 09:36 | P.PN ---
Subjective Progress Note Date: 02/04/19 Principal diagnosis: Moderate to large pericardial effusion. No previous medical history except cholecystectomy and orthopedic surgery. New-onset paroxysmal atrial fibrillation. POD #2 pericardial window and intraoperative transesophageal echocardiogram The patient is currently sitting up in a recliner in no acute distress. Denies pain or shortness of breath. Patient has been ambulatory. Remains in normal sinus rhythm. Anxious to have his chest tube removed, otherwise no new complaints. Objective - Vital Signs Vital signs: Vital Signs Temp 98.2 F 02/04/19 04:05 Pulse 55 L 02/04/19 04:41 Resp 18 02/04/19 04:05 BP 138/85 02/04/19 04:05 Pulse Ox 92 L 02/04/19 04:05 Intake & Output 02/03/19 02/04/19 02/04/19 18:59 06:59 18:59 Intake Total 1080 180 Output Total 4600 2000 Balance -3520 -2000 180 Weight 125.7 kg Intake: Oral 1080 180 Output: Chest Tube Drainage 0 Chest Tube Mediastinal 0 Urine 4600 2000 Other: # Voids 2 1 - Constitutional General appearance: Present: cooperative, no acute distress - Respiratory Details: Lungs sounds clear bilaterally. Respirations even, nonlabored. Currently on room air with oxygen saturation 92%. Able to achieve 2250 mL on his incentive spirometry. - Cardiovascular Details: S1, S2 present. No distant heart tones noted. Slow but regular rate and rhythm , sinus rhythm to sinus bradycardia on telemetry. Palpable peripheral pulses bilaterally. No edema present. No calf pain or tenderness noted. Mediastinal chest tube present to waterseal, less than 20 mL serous drainage in the last 24 hours. - Gastrointestinal Gastrointestinal Comment(s): Abdomen soft, nontender, nondistended. Active bowel sounds present 4 quadrants. Tolerating diet. - Genitourinary Genitourinary Comment(s): Continues to void clear, yellow urine. - Integumentary Integumentary Comment(s): Skin is warm and dry with evidence of good perfusion. - Neurologic Neurologic: Present: CNII-XII intact - Musculoskeletal Musculoskeletal: Present: gait normal, strength equal bilaterally - Psychiatric Psychiatric: Present: A&O x's 3, appropriate affect, intact judgment & insight - Allied health notes Allied health notes reviewed: nursing - Labs CBC & Chem 7: 02/04/19 06:22 02/04/19 07:44 Labs: Abnormal Lab Results - Last 24 Hours (Table) 02/03/19 02/04/19 02/04/19 Range/Units 12:12 06:22 06:22 WBC 12.0 H (3.8-10.6) k/uL Plt Count 475 H (150-450) k/uL Potassium 5.4 H 5.7 H (3.5-5.1) mmol/L BUN 23 H (9-20) mg/dL Glucose 107 H (74-99) mg/dL 02/04/19 Range/Units 07:44 WBC (3.8-10.6) k/uL Plt Count (150-450) k/uL Potassium 5.2 H (3.5-5.1) mmol/L BUN (9-20) mg/dL Glucose (74-99) mg/dL Microbiology - Last 24 Hours (Table) 02/02/19 10:33 Gram Stain - Preliminary Other - Other Tissue Culture - Preliminary 02/02/19 10:33 Gram Stain - Preliminary Pericardial Fluid Body Fluid Culture - Preliminary Assessment and Plan Assessment: 1. Moderate to large global pericardial effusion without tamponade physiology, status post pericardial window with drainage of 750 mL bloody fluid 2. New onset paroxysmal atrial fibrillation with rapid ventricular response, currently in sinus rhythm 3. Family history of premature coronary artery disease Plan: 1. Will discontinue mediastinal chest tube today. 2. Continue colchicine, Motrin, steroids per primary. 3. Paroxysmal a fibrillation management per cardiology. 4. Encourage coughing and deep breathing. 5. Medical management per primary care service. 6. Patient may be discharged to home after chest tube pulled today from our standpoint when okay with other services. He will need to avoid excessive lifting or straining for the next month and will need to be seen in our office in approximately 1 week for incision check. Time with Patient: Greater than 30
[2019-02-04 09:45] VITALS: PULSE 61; RESP 20
[2019-02-04 10:59] VITALS: BP 136/86
[2019-02-04 12:11] VITALS: TEMP 98.6
--- NOTE | 2019-02-04 13:44 | P.DS ---
Providers Date of admission: 01/29/19 23:50 Attending physician: Sonal Warner Consults: 01/30/19 00:15 Consult Physician Routine Consulting Provider: [facility] Consult Reason/Comments: Pericardial effusion Do you want consulting provider notified?: Yes 01/30/19 22:04 Consult Physician Routine Consulting Provider: Je Santoro Consult Reason/Comments: pericardial effusion Do you want consulting provider notified?: Yes, Notify in am [facility]: 43-year-old gentleman admitted for a viral pericarditis leading to pericardial effusion without any tamponade although she does appear to have some peripheral edema and ascites. Patient was a valid by cardiothoracic surgery for pericardiocentesis continue with the medical management with the anti- inflammatories steroids and colchicine patient chest pain is better no significant change in pericardial effusion 02/01/2019 Patient will undergo pericardial window tomorrow we'll cut down the dose of steroids. 02/02/2019 patient had a Pericardial window and a chest tube placement on the left side chest tube has about 50 mL of drainage. 02/03/2019 patient the continuous to have chest tube with total drainage of around 1 50 mL. Patient is hypokalemic received capsulate did not move his bowel yet after that. 02/04/2019 Patient's chest tube was removed clinically doing well with discharged on a week of nonsteroidal anti-inflammatory in the month of colchicine and patient will follow-up with primary care physician and carotid thoracic surgery as an outpatient PHYSICAL EXAMINATION: GENERAL: The patient is alert and oriented x3, not in any acute distress. Well developed, well nourished. HEENT: Pupils are round and equally reacting to light. EOMI. No scleral icterus. No conjunctival pallor. Normocephalic, atraumatic. No pharyngeal erythema. No thyromegaly. CARDIOVASCULAR: S1 and S2 present. No murmurs, rubs, or gallops. PULMONARY: Chest is clear to auscultation, no wheezing or crackles. ABDOMEN: Soft, nontender, nondistended, normoactive bowel sounds. No palpable organomegaly. MUSCULOSKELETAL: No joint swelling or deformity. EXTREMITIES: No cyanosis, clubbing, or pedal edema. NEUROLOGICAL: Gross neurological examination did not reveal any focal deficits. SKIN: No rashes. Assessment and Plan Plan: pleuropericarditis from her recent viral infection status post pericardial window -Hyperkalemia etiology is not clear To let as mentioned above, improved now -Recent upper respiratory infection patient will not require any antibiotics patient the appears to have viral infection -Atrial fibrillation proximal patient is in metoprolol Presently sinus rhythm. Patient is not being started on any anti-correlation as the patient A. fib was brief. -Mild asthma without any acute exacerbation presently had exacerbation on admission -Leukocytosis reactive in nature of improved -Tachycardia secondary to pleuropericarditis no evidence of pneumonia, improved Patient Condition at Discharge: Serious Plan - Discharge Summary Discharge Rx Participant: No New Discharge Prescriptions: New Colchicine [Colcrys] 0.6 mg PO BID #60 each Ibuprofen [Motrin] 600 mg PO TID #21 tab Metoprolol Tartrate [Lopressor] 25 mg PO BID #30 tab Ranitidine HCl [Zantac] 150 mg PO BID #60 tab Continue Azithromycin [Zithromax Z-pack] See Taper PO DIRECTED Discharge Medication List Azithromycin [Zithromax Z-pack] See Taper PO DIRECTED 01/29/19 [History] Colchicine [Colcrys] 0.6 mg PO BID #60 each 02/04/19 [Rx] Ibuprofen [Motrin] 600 mg PO TID #21 tab 02/04/19 [Rx] Metoprolol Tartrate [Lopressor] 25 mg PO BID #30 tab 02/04/19 [Rx] Ranitidine HCl [Zantac] 150 mg PO BID #60 tab 02/04/19 [Rx] Follow up Appointment(s)/Referral(s): Chen Batista NPC [Nurse Practitioner] - 02/11/19 1:00 pm Shin Salter DO [Primary Care Provider] - 02/09/19 8:20 am (Saturday with Laure) Activity/Diet/Wound Care/Special Instructions: Avoid heavy lifting and/or straining for the next month. No tub baths for 1 month. Keep incision clean and dry. Wash with soap and water daily. Report any signs of infection to cardiothoracic surgery office.
--- NOTE | 2019-02-04 14:49 | P.PN ---
Subjective Progress Note Date: 02/04/19 This is a pleasant 43-year-old gentleman who is seen in consultation by Dr. VC Beckman yesterday he presented to the hospital with symptoms of left- sided chest discomfort, abdominal bloating, and symptoms of mild shortness of breath for a one week duration. He did have symptoms prior to that which resemble flulike symptoms, productive cough, nasal congestion sore throat and fever which have been going through his house as well. He had been prescribed Zithromax as an outpatient. He was found on admission here to have a significant pericardial effusion, moderate to large, evidence of right atrial systolic collapse with no significant right ventricular diastolic collapse noted. IVC was dilated and did not collapse, suggestive of elevated right atrial pressure. There is no definite evidence of tamponade. Blood pressure was stable. Through the night last night patient went into atrial fibrillation with a rapid ventricular response and was started on IV Cardizem. This morning has converted back to normal sinus rhythm. Patient was initiated on Solu-Medrol as well as Motrin and colchicine. Sed rate was elevated at 25, C-reactive protein 52.5 viral titers have also been ordered. Yet pending. At the time of my examination this morning the patient feels well, he is sitting up in his chair at bedside, and time asymptomatic. We did repeat a limited echocardiogram with Doppler study this morning which revealed approximately the same amount of fluid. The patient, and may proceed with draining of the pericardial fluid. 02/02/2019 Patient had a limited echo performed this morning which revealed a pretty much the same amount of pericardial fluid for this reason patient was okayed to go down for pericardial window. Hemodynamically he is been stable. He did go back into atrial fibrillation through the night last night and continues to be in A. fib at this time. 02/03/2019 Patient underwent a pericardial window and intraoperative COMPA yesterday, 750 mL of fluid was removed, he continues to have with drainage in place, drainage is very minimal today. Overall the patient feels well, he states that he's been diuresing well through the night and his weight is down significantly today. Blood pressure 132/70 with a heart rate in the 80s. In normal sinus rhythm. 02/04/2019 was seen and examined this morning, his mediastinal chest tube has been removed. He overall feels well today. Denies any chest pain, breathing is stable. Is a fading discharged home this afternoon. Will continue on the Motrin along with the colchicine. Objective - Vital Signs Vital signs: Vital Signs Temp 98.6 F 02/04/19 12:00 Pulse 61 02/04/19 12:00 Resp 20 02/04/19 12:00 BP 136/86 02/04/19 12:00 Pulse Ox 92 L 02/04/19 12:00 Intake & Output 02/03/19 02/04/19 02/04/19 18:59 06:59 18:59 Intake Total 1080 360 Output Total 4600 2000 600 Balance -3520 -2000 -240 Weight 125.7 kg Intake: Oral 1080 360 Output: Chest Tube Drainage 0 0 Chest Tube Mediastinal 0 0 Urine 4600 2000 600 Other: # Voids 2 1 1 # Bowel Movements 1 - Exam PHYSICAL EXAMINATION: GENERAL: 43-year-old gentleman in no acute distress at the time of my examination HEENT: Head is atraumatic, normocephalic. Pupils equal, round. Sclera anicteric. Conjunctiva are clear. Mucous membranes of the mouth are moist. Neck is supple. There is no elevated jugular venous pressure. No carotid bruit is heard. HEART EXAMINATION: Heart S1, S2 irregularly irregular . No murmur or gallop heard. CHEST EXAMINATION: Lungs are clear to auscultation and precussion. No chest wall tenderness is noted on palpation or with deep breathing. ABDOMEN: Soft, nontender. Bowel sounds are heard. No organomegaly noted. EXTREMITIES: 2+ peripheral pulses with no evidence of peripheral edema and no calf tenderness noted. NEUROLOGIC patient is awake, alert and oriented 3. . - Labs CBC & Chem 7: 02/04/19 06:22 02/04/19 07:44 Labs: Abnormal Lab Results - Last 24 Hours (Table) 02/04/19 02/04/19 02/04/19 Range/Units 06:22 06:22 07:44 WBC 12.0 H (3.8-10.6) k/uL Plt Count 475 H (150-450) k/uL Potassium 5.7 H 5.2 H (3.5-5.1) mmol/L BUN 23 H (9-20) mg/dL Glucose 107 H (74-99) mg/dL Microbiology - Last 24 Hours (Table) 02/02/19 10:33 Anaerobic Culture - Preliminary Pericardial Fluid 02/02/19 10:33 Gram Stain - Preliminary Pericardial Fluid Body Fluid Culture - Preliminary 02/02/19 10:33 Gram Stain - Preliminary Other - Other Tissue Culture - Preliminary Assessment and Plan Plan: Assessment and plan #1 moderate to large pericardial effusion, likely secondary to recent viral infection. #2 paroxysmal atrial fibrillation Plan From cardiology's perspective, we'll continue with current medications. And dissipate discharged home later today on colchicine and Motrin. We will make the patient a follow-up appointment with Dr. VC Beckman in the office post discharge. DNP note has been reviewed, I agree with a documented findings and plan of care. Patient was seen and examined.
== END 2019-02-04 16:53 | disposition home or self-care (01) | DRG 271 ==
LOC: EC 19:54 → 3SCARD 23:50
PROVIDERS: ADMIT Internal Medicine; ATTEND Internal Medicine
PROC: 0W9D0ZZ Drainage of Pericardial Cavity, Open Approach (ICD-10-PCS; principal; 2019-02-02 07:30)
PROC: B24CZZ4 Ultrasonography of Pericardium, Transesophageal (ICD-10-PCS; 2019-02-02 07:30)
DX: I30.1 Infective pericarditis (principal); J90 Pleural effusion, not elsewhere classified; R18.8 Other ascites; J98.11 Atelectasis; I51.7 Cardiomegaly; E66.9 Obesity, unspecified; R70.0 Elevated erythrocyte sedimentation rate; I48.0 Paroxysmal atrial fibrillation; B34.9 Viral infection, unspecified; R00.0 Tachycardia, unspecified; B97.89 Other viral agents as the cause of diseases classified elsewhere; J45.909 Unspecified asthma, uncomplicated; E87.6 Hypokalemia; Z68.39 Body mass index [BMI] 39.0-39.9, adult; Z86.19 Personal history of other infectious and parasitic diseases; Z90.49 Acquired absence of other specified parts of digestive tract; Z82.49 Family history of ischemic heart disease and other diseases of the circulatory system; Z83.3 Family history of diabetes mellitus; Z83.438 Family history of other disorder of lipoprotein metabolism and other lipidemia
CPT/HCPCS: 36415; 71045; 71046; 71275; 80048; 80053; 81001; 82150; 83036; 83690; 84132; 84484; 85025; 85027; 85379; 85610; 85652; 85730; 86140; 86658; 86850; 86900; 86901; 87070; 87075; 87116; 87205; 87206; 88108; 88305; 93005; 93306; 93308; 94640; 94760; 96361; 96374; 99285

== ENCOUNTER → 2019-04-09 | Outpatient (CLI) | payer BC ==
[2019-04-09 16:17] LABS: Basophils % (A) 0 %; Eosinophils # (A) 0.2 k/uL (0-0.7); Eosinophils % (A) 2 %; HCT 47.2 % (39.0-53.0); HGB 15.8 gm/dL (13.0-17.5); Lymphocytes % (A) 21 %; MCH 29.8 pg (25.0-35.0); MCHC 33.4 g/dL (31.0-37.0); MCV 89.2 fL (80.0-100.0); Mean Platelet Volume 7.6; Monocytes # (A) 0.3 k/uL (0-1.0); Monocytes % (A) 4 %; Neutrophils # (A) 6.7 k/uL (1.3-7.7); Neutrophils % (A) 71 %; Platelet Count 279 k/uL (150-450); RBC 5.29 m/uL (4.30-5.90); RDW 14.3 % (11.5-15.5); WBC 9.5 k/uL (3.8-10.6)
[2019-04-09 19:37] LABS: Erythrocyte Sedimentation Rate 3 mm/hr (0-15)
[2019-04-10 00:53] LABS: Albumin 4.5 g/dL (3.80-4.90); Albumin/Globulin Ratio 2.37 (1.60-3.17); Anion Gap 10.1 mmol/L (4.00-12.00); Calcium 9.2 mg/dL (8.7-10.3); Carbon Dioxide 24.9 mmol/L (21.6-31.8); Globulin 1.9 g/dL (1.6-3.3); Potassium 4.5 mmol/L (3.5-5.5); Total Bilirubin 0.5 mg/dL (0.2-1.2); Total Protein 6.4 g/dL (6.2-8.2)
== END | disposition home or self-care (01) ==
LOC: LABWHC1 15:15
PROVIDERS: ATTEND Internal Medicine Cardiovascular Disease
DX: I31.9 Disease of pericardium, unspecified (principal); I31.3 Pericardial effusion (noninflammatory)
CPT/HCPCS: 36415; 80053; 85025; 85652

== ENCOUNTER → 2023-11-07 | Outpatient (CLI) | payer BC ==
--- NOTE | 2023-11-07 14:45 | P.SLEEP ---
History of Present Illness DATE: 11/07/2023 CONSULTATION/NEW PATIENT EVALUATION HISTORY OF PRESENT ILLNESS/SLEEP-WAKE EVALUATION: 48 year old gentleman had been evaluated in the sleep center for possible obstructive sleep apnea hypopnea syndrome. SLEEP SCHEDULE: Usually sleep schedule from 11 PM to 6:30 AM mostly 7 days a week. FALLING ASLEEP: Occasionally patient has difficulties with falling to sleep, although no TV in bedroom. DURING SLEEP: Patient sleeps on the side and stomach position of the loud snoring, grinding teeth and multiple awakenings from sleep. No history of hypnogogical hallucinations, sleep paralysis, or cataplexy. DURING THE DAY/WAKE STATE: In the morning patient wake up tired, falling asleep during the day. [place] sleepiness scale is slightly increased to 10. Patient takes 1 nap during the day. PAST MEDICAL HISTORY: Episodes of atrial fibrillation, viral pericarditis. PAST SURGICAL HISTORY: Pericardial window in 2019, cholecystectomy, shoulder surgery. MEDICATIONS: None at the present time. SOCIAL HISTORY: Negative for smoking, alcohol consumption occasional. FAMILY HISTORY: Hypertension, heart problems, cancer, anemia, restless legs, diabetes. REVIEW OF SYSTEMS: Loud snoring, multiple awakenings from sleep, sleepiness during the day. No fevers. No double vision. No recent chest pain. No shortness of breath. No abdominal pain. No bleeding episodes. No blood in urine. No seizure episodes. PHYSICAL EXAMINATION: GENERAL: A pleasant patient without any distress. VITAL SIGNS: BP 162/91, HR 74, RR 16, weight 281 pounds, height 5 foot 10 inches, body mass index 40.3. HEENT: PERRLA, EOMI. Evaluation of oropharynx showed tongue protrudes midline, low position of soft palate Mallampati 3, hypertrophy of tonsils. NECK: Supple. No JVD. Thyroid is not palpable. 19-3/4 inches in circumference. LUNGS: Clear to percussion and to auscultation. Good air exchange. No wheezing or rhonchi. HEART: S1, S2 regular. No murmurs, gallops or rubs. ABDOMEN: Soft and nontender. Bowel sounds are present. No organomegaly appreciated. EXTREMITIES: No clubbing or cyanosis. FIELD LOGISTICS COORDINATOR: Awake, alert, and oriented x3. Cranial nerves 2 to 7 intact. There is no fasciculation or atrophy noted. No focal deficits observed. ASSESSMENT: 1. Loud snoring, multiple awakenings from sleep, low position of soft palate Mallampati 3, hypertrophy of tonsils, wide neck 19 and three-quarter inches in circumference, sleepiness [place] Sleepiness Scale increased to 10. Obstructive sleep apnea hypopnea syndrome. 2. Obesity, BMI 40.3. 3. History of viral pericarditis and pleuritis. 4. History of atrial fibrillation. 5 status post pericardial window in 2019. 6 . Status post cholecystectomy. 7. Status post shoulder surgery. 8. Grinding teeth. PLAN: 1. Home sleep apnea test for evaluation of patient's breathing during sleep. 2. CPAP/BiPAP titration if sleep study confirms obstructive sleep apnea- hypopnea syndrome. 3. Preferable position during sleep on the side. 4. No driving if patient feels any sleepiness. Patient is aware of civil and criminal liability for unsafe driving. 5. Sleep hygiene with regular sleep time for at least 7.5-8 hours. 6. Watching and losing weight. Thank you very much for referring this patient for consultation. Sincerely, Naveen Beckham MD, PhD, FAASM. Diplomat of [place] [employer] Sleep Medicine, Sleep Medicine Board by [place] [employer] Specialities [employer] [place] [employer] of Internal Medicine Turn Down Man of [facility] [place] Past Medical History Past Medical History: No Reported History History of Any Multi-Drug Resistant Organisms: None Reported Past Surgical History: Cholecystectomy, Orthopedic Surgery Additional Past Surgical History / Comment(s): Left shoulder surgery 08/2008 Past Anesthesia/Blood Transfusion Reactions: No Reported Reaction Past Psychological History: No Psychological Hx Reported Past Alcohol Use History: Rare Past Drug Use History: None Reported - Past Family History Mother Family Medical History: Diabetes Mellitus Additional Family Medical History / Comment(s): Maternal grandmother had diagnosed coronary artery disease less than 60 years old Father Family Medical History: Hyperlipidemia Medications and Allergies Home Medications Medication Instructions Recorded Confirmed Type Azithromycin [Zithromax Z-pack (6 See Taper PO DIRECTED 01/29/19 01/29/19 History tabs)] Colchicine [Colcrys] 0.6 mg PO BID #60 each 02/04/19 Rx Ibuprofen [Motrin] 600 mg PO TID #21 tab 02/04/19 Rx Metoprolol Tartrate [Lopressor] 25 mg PO BID #30 tab 02/04/19 Rx Ranitidine HCl [Zantac] 150 mg PO BID #60 tab 02/04/19 Rx Allergies Allergy/AdvReac Type Severity Reaction Status Date / Time No Known Allergies Allergy Verified 01/29/19 22:35 Sleep Note - Sleep Note Sleep Note: Temperature: Pulse Rate: Respiratory Rate: Blood Pressure: SpO2: Height: Weight: BMI: Neck Circumference:
== END ==
LOC: 3 N SLEEP 13:34
PROVIDERS: ATTEND Internal Medicine
DX: G47.33 Obstructive sleep apnea (adult) (pediatric) (principal); E66.9 Obesity, unspecified; I31.39 Other pericardial effusion (noninflammatory); I31.9 Disease of pericardium, unspecified; I48.91 Unspecified atrial fibrillation; F45.8 Other somatoform disorders; Z90.49 Acquired absence of other specified parts of digestive tract; Z68.41 Body mass index [BMI] 40.0-44.9, adult; Z98.890 Other specified postprocedural states; Z99.89 Dependence on other enabling machines and devices
CPT/HCPCS: 99211

== ENCOUNTER → 2023-11-22 | Outpatient (CLI) | payer BC ==
--- NOTE | 2023-12-04 16:31 | P.PCN ---
Description of Procedure: CLINICAL: A home sleep apnea test has been done for confirmation of possible obstructive sleep apnea-hypopnea syndrome. DESCRIPTION OF PROCEDURE: RESULTS: Recording time was 8 hours 21 minutes. Evaluation time was 8 hours 9 minutes. Evaluation time is sufficient for making conclusion about results of the test. Raw data of sleep recording has been reviewed and is adequate. Respiratory channel showed 40 apneas and 100 hypopneas. Apnea-hypopnea index was 17.2 per hour. Pulse rate in the range between minimum 57, maximum 85, average 67 by computer calculation. Lowest desaturation was 79%. IMPRESSION: 1. Moderate Obstructive Sleep Apnea Hypopnea Syndrome. Please see other impressions from consultation. PLAN: 1. The patient should have PAP titration for correction of respiratory abnormallities during sleep. 2. I will see patient for follow up visit to discuss results of the test, evaluate clinical response on treatment with PAP therapy and make any necessary adjustments related to mask fitting, pressure, and humidification. 3. Watching and losing weight. 4. Sleep hygiene with regular time in bed for at least 8 hours. 5. No driving if feeling any sleepiness. Thank you very much for allowing me to participate in the management of your patient. Sincerely, Naveen Beckham MD, PhD, FAASM Diplomat of [place] [employer] Sleep Medicine Board of [place] [employer] Medicine Senior Trial Attorney of [facility] [place]
== END ==
LOC: 3 N SLEEP 12:56
PROVIDERS: ATTEND Internal Medicine
DX: G47.33 Obstructive sleep apnea (adult) (pediatric) (principal)

== ENCOUNTER 2024-01-22 19:54 | Outpatient (CLI) | payer BC ==
--- NOTE | 2024-01-23 13:51 | P.PCN ---
Description of Procedure: CLINICAL: Titration with positive air pressure has been done for correction of respiratory abnormalities during sleep. DESCRIPTION OF PROCEDURE: The standard montage for clinical polysomnography included the electroencephalogram, the electrocardiogram, the mentalis surface electromyography and Lead II cardiography. The respiratory battery consisted of measurements of nasal /buccal air flow, pressure transducer measurements from the nose, thoracic and /or abdominal effort and intercostal surface electromyography. Video monitoring has been done to check for any parasomnia events. Nocturnal oxyhemoglobin saturations were obtained by finger oximetry. Step-evangelista titration with positive airway pressure was utilized to control respiratory events. Raw data of sleep recording has been reviewed and is adequate. RESULTS: Sleep efficiency was decreased to 78.5 %. Latency to sleep onset was close to the border 25.0 minutes.]. Sleep architecture showed stage N1 was slightly short 5.0 %, Delta sleep was absent 0 %, REM sleep was decreased to 15.8 %. Heart rate was minimum 60 BPM, maximum 67 BPM, average 63 BPM. EMG showed 60.3 periodic limb movements per hour with 1.3 micriarousals per hour. PAP titration have been done with CPAP up to the pressure 14 cm H2O. Patient had problems with CPAP, switched to BPAP. BPAP titrated up to 16/12 cm H2O. The best results were at the pressure 15/10 cm H2O. Apnea hypopnea index reduced to 0. IMPRESSION: 1. Obstructive sleep apnea hypopnea syndrome on controle with BPAP treatment. 2. Significant periodic limb movements have been documented. Please see other impressions from consultation. PLAN: 1. The patient will have treatment with positive air pressure equipment with the level of pressure AutoBPAP with maximal expiratory pressure 16 and minimal expiratory pressure 6 cm H2O and should use it every night for the whole night. 2. Watching and losing weight. 3. Sleep hygiene with regular time in bed for at least 8 hours. 4. No driving if feeling any sleepiness. 5. I will see the patient for follow up visit to explain results of the test, recommendations, check compliance with treatment and make any necessary adjustment related to mask fitting, pressure and humidification. 6. Please check iron profile including ferritin level. Low level of iron may increase risk for periodic limb movements Thank you very much for allowing me to participate in the management of your patient. Sincerely, Naveen Beckham MD, PhD, FAASM Diplomat of [place] [employer] Sleep Medicine Board of [place] [employer] of Internal Medicine Relief Docking Master of [facility] [place]
== END 2024-01-23 05:25 | disposition home or self-care (01) ==
LOC: 3 N SLEEP 19:54
PROVIDERS: ATTEND Internal Medicine
DX: G47.33 Obstructive sleep apnea (adult) (pediatric) (principal); G47.61 Periodic limb movement disorder
CPT/HCPCS: 95811

== ENCOUNTER → 2024-05-13 | Outpatient (CLI) | payer BC ==
[2024-05-13 16:30] VITALS: BP 149/87; PULSE 74; RESP 16; TEMP 98.5
--- NOTE | 2024-05-13 17:24 | P.PROGSL ---
Subjective DATE: 05/13/2024 FOLLOW UP VISIT. Patient with obstructive sleep apnea hypopnea syndrome return to sleep center for follow-up visit. Recently patient had sleep study which documented obstructive sleep apnea hypopnea syndrome. Patient was initiated on PAP therapy and today is first visit after treatment was started. Patient was able to use PAP equipment every night for the whole night. The patient has problems related to nasal mask. [place] sleepiness scale is significantly increased to 17. I checked information from PAP unit. PAP unit pressure maximal inspiratory pressure 16, minimal expiratory pressure 5, pressure support 4, average pressure 13.5/9.5 cm H2O. Usage is 93% for more then 4 hours, average 6.75 hours per night. Leak is 15.2 l/m, which is in acceptable range. Apnea Hypopnea Index is 2.1, which is normal. MEDICATIONS: Please see below During physical exam: GENERAL: A pleasant patient without any distress. VITAL SIGNS: Please see below, weight 295 pounds. HEENT: PERRLA, EOMI.low position of soft palate, Mallapati 3 . NECK: Supple. No JVD. LUNGS: Clear to percussion and to auscultation. Good air exchange. No wheezing or rhonchi. HEART: S1, S2 regular. ABDOMEN: Soft and nontender. Slightly obese EXTREMITIES: No clubbing or cyanosis. TOOL CRIB LEAD: Awake, alert, and oriented x3. No focal deficit. Impressions: 1. Obstructive sleep apnea-hypopnea syndrome. Patient demonstrated great compliance with treatment, benefiting from treatment. 2. Obesity. 3. History of viral pericarditis and pleuritis. 4. History of atrial fibrillation. 5. Status post pericardial window in 2019. 6. Status post cholecystectomy. 7. Status post shoulder surgery. 8. History of grinding teeth. Plan: 1. Continue using PAP equipment every night for the whole night. 2. To change air filter at least 1-2 times per month. 3. PAP unit should stay lower then position of the head. 4. Advised patient to remove all remaining water from humidifier canister daily and make it dry after each usage. Refill canister with fresh distilled water before each usage. 5. Sleep hygiene with regular time in bed for at least 8 hours. 6. Precautions related to driving. No driving if feel any sleepiness. 7. I will maintain prescription for PAP supplies including mask, tube, filters. Prescription for nasal pillow mask. 8. Follow up visit in 6 months or earlier if patient has any problems. 9. Watching and losing weight. Thank you very much for allowing me to participate in the management of your patient. Naveen Beckham MD, PhD, FAASM. Diplomat of [place] [employer], Sleep Medicine Board by [place] [employer] Medicine Technologist [facility] [place] [facility] [place] Objective - Vital Signs Vital Signs: Vital Signs Temp 98.5 F 05/13/24 16:29 Pulse 74 05/13/24 16:29 Resp 16 05/13/24 16:29 BP 149/87 05/13/24 16:29 Pulse Ox 93 L 05/13/24 16:29 FiO2 Intake & Output 05/12/24 05/13/24 05/13/24 18:59 06:59 18:59 Weight 133.81 kg Home Medications: Home Medications Medication Instructions Recorded Confirmed Type Azithromycin [Zithromax Z-pack (6 See Taper PO DIRECTED 01/29/19 01/29/19 History tabs)] Colchicine [Colcrys] 0.6 mg PO BID #60 each 02/04/19 Rx Ibuprofen [Motrin] 600 mg PO TID #21 tab 02/04/19 Rx Metoprolol Tartrate [Lopressor] 25 mg PO BID #30 tab 02/04/19 Rx Ranitidine HCl [Zantac] 150 mg PO BID #60 tab 02/04/19 Rx
== END ==
LOC: 3 N SLEEP 16:00
PROVIDERS: ATTEND Internal Medicine
DX: G47.33 Obstructive sleep apnea (adult) (pediatric) (principal); E66.9 Obesity, unspecified; Z90.49 Acquired absence of other specified parts of digestive tract; Z86.79 Personal history of other diseases of the circulatory system; Z98.890 Other specified postprocedural states; Z99.89 Dependence on other enabling machines and devices; Z98.818 Other dental procedure status
CPT/HCPCS: 99212